=== PATIENT | female | born 1965 | race Caucasian/White ===

== ENCOUNTER 2021-10-25 09:01 | Outpatient (CLI) | payer BC, SELFPAY ==
--- NOTE | 2021-10-25 09:15 | CRLHL7_ITS ---
For Patients: As a result of the Century Cures Act, medical imaging exams and procedure reports are released immediately into your electronic medical record. You may view this report before your referring provider. If you have questions, please contact your health care provider. BILATERAL SCREENING MAMMOGRAM WITH COMPUTER-AIDED DETECTION AND TOMOSYNTHESIS TECHNIQUE: CC and MLO views were obtained. These mammographic images have been obtained using full-field digital technique. These mammographic images were interpreted with the benefit of computer-aided detection. Breast Tomosynthesis was used in this interpretation. COMPARISON FILM: 07/24/20, 06/03/18, 12/26/15. FINDINGS: There are scattered areas of fibroglandular density IMPRESSION: There is no radiographic evidence for malignancy. ASSESSMENT: BI-RADS Category 1: Negative RECOMMENDATION: Routine screening mammogram in 1 year. A lay language report of this examination will be provided to the patient. Steve Hoffman M.D. Diagnostic Radiologist [email or web address] RIMA/Dictated by: Steve Hoffman MD @ 10/25/2021 10:26:00 AM (Electronically Signed)
== END 2021-10-25 09:02 | disposition home or self-care (01) ==
LOC: MAMMO 09:02
PROVIDERS: PCP Physician Assistant Medical; Visit Provider Physician Assistant Medical
DX: Z12.31 Encounter for screening mammogram for malignant neoplasm of breast (principal)
CPT/HCPCS: 77063; 77067

== ENCOUNTER 2021-11-07 14:42 | Outpatient (CLI) | payer BC, SELFPAY ==
[2021-11-07 13:46] LABS: Albumin* 4.4 g/dL (3.3-5.0); Chloride* 103 mmol/L (96-114)
[2021-11-07 13:47] LABS: Potassium* 4.1 mmol/L (3.6-5.1); Sodium* 137 mmol/L (135-149)
[2021-11-07 13:49] LABS: Aspartate Amino Transferase* 30 U/L (12-35); Bilirubin Total* 0.6 mg/dL (0.1-1.5); Blood Urea Nitrogen* 13 mg/dL (7-30); Carbon Dioxide* 29 mmol/L (20-32); Cholesterol* 188 mg/dL (90-199); Creatinine* 0.7 mg/dL (0.5-1.5); Estimated Glomerular Filt Rate 102 ml/min; Glucose* 96 mg/dL (60-115); Total Protein* 6.7 g/dL (6.0-8.3)
[2021-11-07 13:50] LABS: Alanine Aminotransferase* 19 U/L (4-35); Alkaline Phosphatase* 61 U/L (40-150); Calcium* 9.5 mg/dL (8.4-10.6); HDL Cholesterol* 64 mg/dL (>=50); LDL Cholesterol Calculated 112 mg/dL (<100); Triglycerides* 58 mg/dL (40-149)
== END 2021-11-07 14:43 | disposition home or self-care (01) ==
PROVIDERS: PCP Physician Assistant Medical; Visit Provider Physician Assistant Medical
DX: Z00.00 Encounter for general adult medical examination without abnormal findings (principal); E78.5 Hyperlipidemia, unspecified; H40.039 Anatomical narrow angle, unspecified eye; J30.2 Other seasonal allergic rhinitis
CPT/HCPCS: 80053; 80061

== ENCOUNTER 2021-12-09 10:04 | Outpatient (CLI) | payer BC, SELFPAY ==
--- NOTE | 2021-12-09 11:43 | W.ANESCHARGE ---
Anesthesia Charges Start Date/Time Anesthesia Start Date: 12/09/21 Anesthesia Start Time: 11:10 Stop Date/Time Anesthesia Stop Date: 12/09/21 Anesthesia Stop Time: 11:40 Summary Emergency: No
--- NOTE | 2021-12-09 12:02 | W.ANESCHARGE ---
Anesthesia Charges Start Date/Time Anesthesia Start Date: 12/09/21 Anesthesia Start Time: 11:10 Stop Date/Time Anesthesia Stop Date: 12/09/21 Anesthesia Stop Time: 11:40 Summary Emergency: No
== END 2021-12-09 10:05 | disposition home or self-care (01) ==
LOC: OP CLINIC 10:04
PROVIDERS: PCP Physician Assistant Medical; Visit Provider Surgery
DX: Z12.11 Encounter for screening for malignant neoplasm of colon (principal); K63.5 Polyp of colon; Z80.0 Family history of malignant neoplasm of digestive organs
CPT/HCPCS: 00811; 45385; 88305

== ENCOUNTER 2022-05-07 14:00 | Outpatient (RCR) | payer BC, SELFPAY ==
--- NOTE | 2021-12-16 18:09 | OT.OPOE ---
OT Outpatient Ortho Eval OT Outpatient Ortho Eval Start: 12/16/21 15:14 Freq: Status: Active Protocol: Document 12/16/21 15:15 LCN (Rec: 12/16/21 15:34 LCN Desktop) E-signed By Samreen Hurley, OTR/L, CLT OT OP Ortho Eval Details Type Type Eval Complexity Low Insurance Information Insurance Information Blue Cross/Blue Shield Outpatient History/Precautions Current Condition/Medical Diagnosis Referring Provider Jacklyn Beach PA-C Treatment Diagnosis R lateral epicondylitis Date of Onset 12/02/21 Medical Conditions Heart Condition Other Conditions H/O Mitral Valve insufficiency , intraarterial septum aneurysm on ASA 81 mg. Medical/Functional History Medical History Reviewed Yes Prior Level of Function/Mobility High lvel of independence Oriented Mental Status No Concerns Ortho Subjective Subjective Subjective Samreen Dueñas is an active 56 y/o female who has been having R lateral epicondylitis sx for the past 4 months. Tried getting back to working out after her 's spinal cancer, but not tolerating dumb belkl weights at all. Pt's goal for OT is to get back there again soon building uppe rbody strength and endurance without pain. Currently having pain with lifting gallon of milk, laundry detergent, opening big items with a twist. Can use rowing machine x 10 minutes. Also having B cervical pain, has orders from PT to address. 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 Pain Assessment Pain Present Pain Present Pain Reported Location R lateral elbow. Description Pressure,Sharp,Dull, Achy,With Movement,Heaviness Intensity 4 Goniometric Comments Goniometric Comments Goniometric Comments MMT of shoulders revela overfiring of upper traps during SH FL, SH ABD and protraction, all 4+/5 B. R EL pn with resisted biceps and triceps at full BARTOLO. Balanced MMT of WR EX/FL, RD/UD, supination and pronation, all non tender. Gripping pos 1 is 58# R, no pain. L 62. Pos 2 is 48# with 2/10 ECRL pain R and 55# L. Canseco pinch is 17.5 R and 14# L (2/10 L TH MP pain ) 3 pt pinch is 17.5 # R and L, no pain. Thickness, gritty texture and banding at lateral margin of triceps insert, ECU, ECRL msucle bellies. Point tender deep in elbow jint and over the lateral epicondyle. OT Objective Data Observations/Posture Objective Observations Pt is aware she was spending more time on her iPad and watching shows on her larger phone, typing more, now that she is taking an online christianity course. OT Problems Problems Problems Decreased Strength,Lifting, Gripping,Pinching Other Problems Writing,Opening Containers, Computer Patient Potential Excellent Assessment Assessment Assessment Given Samreen's diagnosis of R lateral epicondylitis and ? difficulty with edema, pain and strength loss of R hand/ wrist/elbow she would benefit from skilled OT to address these areas. Occupational Therapy Treatment Plan - OP Potential Rehabilitation Potential Excellent Set Goals Goals Set with Patient Yes Goals Goals In 8 weeks, Samreen will demonstrate:? 1) Decreased pn to <2/10 80% of the time with sustained gripping, carrying groceries, typing and reading books. 2) I HEP for stretching, gradual strengthening and self mgmt strategies. 3) improved R waste removalist strength to 50# in pos 2 with R elbow pain < 1/10. 4)??Pt to be fit with functional bracing (for R elbow counter pressure cuff) and use adaptive strategies to protect joint integrity to support less pain with ADL. Target Date 01/14/23 Progress set Treatment Plan Treatment Plan Evaluation,Edema Control, Iontophoresis,Joint Mobilization,Manual Therapy, Splinting,Ultrasound, Therapeutic Exercise,Self-Care /Home Management,Education Expected Frequency 1-2x Week Expected Duration 6-8 Weeks Certification Certification I Certify That: Therapy Services Provided, Therapy Plan Established, Therapy Plan Reviewed
--- NOTE | 2022-05-07 15:01 | OT.OPODN ---
OT Outpatient Ortho Daily Note OT Outpatient Ortho Daily Note Start: 12/16/21 15:14 Freq: Status: Active Protocol: Document 05/07/22 14:50 LCN (Rec: 05/07/22 15:01 LCN Desktop) E-signed By Samreen Hurley, OTR/L, CLT Type of Note Type of Note Type of Note Daily Note,Discharge Note,Note To MD Visit Number [id number] Comments 02/04/22-- cx with flu Insurance Information Insurance Information Blue Cross/Blue Shield Outpatient History/Precautions Current Condition/Medical Diagnosis Referring Provider Jacklyn Beach PA-C Treatment Diagnosis R lateral epicondylitis Date of Onset 12/02/21 Medical Conditions Heart Condition Other Conditions H/O Mitral Valve insufficiency , intraarterial septum aneurysm on ASA 81 mg. 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 These symptoms are not elicited by other lifting, carrying, unmanned equipment operator/ twist motions. Feeling much better about getting back to the gym. Samreen Dueñas is an active 56 y/o female who has been having R lateral epicondylitis sx for the past 4 months. Tried getting back to working out after her 's spinal cancer, but not tolerating dumb belkl weights at all. Pt 's goal for OT is to get back there again soon building uppe rbody strength and endurance without pain. Currently having pain with lifting gallon of milk, laundry detergent, opening big items with a twist. Can use rowing machine x 10 minutes. Also having B cervical pain, has orders from PT to address. 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 Pain Assessment Pain Present Pain Present Pain Reported Location R lateral elbow. Description Pressure,With Movement Intensity 1 OT OP Daily Ortho Note/Assessment Therapeutic Exercise Therapeutic Exercise Minutes (minutes) 10 Therapeutic Exercise Comments Progressed to dynamic knee based push ups, with pt able to return safe set up of rib to scupla , navel to spine connections ; cues needed only to prevent hyper extend EL at top of ROM. Applied this same prinicple to biceps, chest press, triceps and lat pull down, in anticipation of return to gym with trainers this month. Ultrasound Ultrasound Comments as needed to support reduction of edema for tissue healing and improved tissue mobility. Iontophoresis Iontophoresis Comments as needed for antinflammatory properties, pain reduction. Manual Therapy Manual Therapy Minutes (minutes) 18 Manual Therapy Comments OTR continues IASTM with Graston #6 to mobilize soft tissue surrounding joint capsule,?ligament structures and muscle groups to support freedom of movement and healing of structures of R PT, ECRL R CET, med/lateral triceps insert, ECU, EDC muscle bulk of WR EX group. STM of triceps long head. Goniometric Comments Goniometric Comments Goniometric Comments 05/06/22--Ground Hand Pos 1 is 65# R no pain and 68# L. Pos 2 is 58# R ( 1-2 twinge at deep olec). Canseco pinch is 18# B and 3 pt pinch is 18#B. 04/16/22-- Ground Hand improved pos 2 to 60# with 2-3/10 pressure at deep oelc area, resolves quickly. 40# No pain. MMT of shoulders revela overfiring of upper traps during SH FL, SH ABD and protraction, all 4+/5 B. R EL pn with resisted biceps and triceps at full BARTOLO. Balanced MMT of WR EX/FL, RD/UD, supination and pronation, all non tender. Gripping pos 1 is 58# R, no pain. L 62. Pos 2 is 48# with 2/10 ECRL pain R and 55# L. Canseco pinch is 17.5 R and 14# L (2/10 L TH MP pain ) 3 pt pinch is 17.5 # R and L, no pain. Thickness, gritty texture and banding at lateral margin of triceps insert, ECU, ECRL msucle bellies. Point tender deep in elbow jint and over the lateral epicondyle. OT Objective Data Observations/Posture Objective Observations Pt is aware she was spending more time on her iPad and watching shows on her larger phone, typing more, now that she is taking an online Down course. Additional Information Objective Additional Information 1 Upper Extremity Special Tests Elbow Cozens Test Positive Right OT Problems Problems Problems Decreased Strength,Lifting, Gripping,Pinching Other Problems Writing,Opening Containers, Computer Patient Potential Excellent Assessment Assessment Assessment Pt feeling ready for return to gym setting, getting applications trainer sessions set up. Feeling no more pain with daily ADL,IADL/ house chores. Given Samreen's diagnosis of R lateral epicondylitis and ? difficulty with edema, pain and strength loss of R hand/ wrist/elbow she would benefit from skilled OT to address these areas. Occupational Therapy Treatment Plan - OP Potential Rehabilitation Potential Excellent Set Goals Goals Set with Patient Yes Goals Target Date 01/14/23 Progress set Treatment Plan Treatment Plan Evaluation,Edema Control, Iontophoresis,Joint Mobilization,Manual Therapy, Splinting,Ultrasound, Therapeutic Exercise,Self-Care /Home Management,Education Expected Frequency 1-2x Week Expected Duration 6-8 Weeks Comment Summary Address periscapular to triceps/lat epic tension line w MFR/STM. Review self kinesiotaping if desired. OT Treatment Minutes Treatment Minutes Untimed Treatment Minutes 0 Timed Treatment Minutes 28 Total Treatment Minutes 28 Occupational Therapy Billing Units Billing Units Iontophoresis 0 Manual Therapy 1 Self Care/Home Management 0 Therapeutic Exercise 1 Ultrasound 0 Certification Certification I Certify That: Therapy Services Provided, Therapy Plan Established, Therapy Plan Reviewed Discharge Note Discharge Note Discharge Summary Pt has mild 1-2/10 twinge during unmanned equipment operator pos 2. These symptoms are not elicited by other lifting, carrying, unmanned equipment operator/ twist motions. Feeling much better about getting back to the gym. In 8 weeks, Samreen will demonstrate:? 1) Decreased pn to <2/10 80% of the time with sustained gripping, carrying groceries, typing and reading books. GOAL MET 05/06/22 2) I HEP for stretching, gradual strengthening and self mgmt strategies. GOAL MET 04/11 3) improved R unmanned equipment operator strength to 50# in pos 2 with R elbow pain < 1/10. GOAL MET-- Ground Hand Pos 1 is 65# R no pain and 68# L. Pos 2 is 58# R ( 1-2 twinge at deep olec). Canseco pinch is 18# B and 3 pt pinch is 18#B. 4)??Pt to be fit with functional bracing (for R elbow counter pressure cuff) and use adaptive strategies to protect joint integrity to support less pain with ADL. GOAL MET and D/C, no longer needs bracing. Initial Primary Functional Limitations/ Samreen Dueñas is an active Concerns 56 y/o female who has been having R lateral epicondylitis sx for the past 4 months. Tried getting back to working out after her 's spinal cancer, but not tolerating dumb belkl weights at all. Pt 's goal for OT is to get back there again soon building uppe rbody strength and endurance without pain. Currently having pain with lifting gallon of milk, laundry detergent, opening big items with a twist. Can use rowing machine x 10 minutes. Also having B cervical pain, has orders from PT to address. 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 Initial Pain Level 6 Pain Level at Discharge 1 Interventions Provided During Treatment Heat,Ice/Cold/Vasopneumatic, Iontophoresis,Joint Mobilization,Manual Therapy, Orthotics/Braces,Therapeutic Exercise,Ultrasound,Self Care/ Home Management Recommendations/Reason for Discharge Met All Therapy Goals Discharge Instructions Cont 05/06/22-- knee based push ups 04/16/22-- knee planks, circuit at gym ( lat pull down, TRX row , bicep, tricep, careful with OH Press), interval based group exercise and cardio programs HIIT. 04/07/22-- self k tape 02/14/22-- SH XTR, chest press and biceps. 01/27/22--self K tape 01/22/22-- [place] band concentric 01/15/22-- [place] band isomtric laoding WR EX, FL, RD, UD and hammer turns. Cerv retraction glides.
== END 2022-08-28 23:59 | disposition home or self-care (01) ==
PROVIDERS: PCP Physician Assistant Medical; Visit Provider Physician Assistant Medical
DX: S29.012A Strain of muscle and tendon of back wall of thorax, initial encounter (principal); Z51.89 Encounter for other specified aftercare
CPT/HCPCS: 97033; 97035; 97110; 97140; 97161; 97165; 97535; X5282

== ENCOUNTER 2022-10-27 13:56 | Outpatient (CLI) | payer BC, SELFPAY ==
--- NOTE | 2022-10-27 14:00 | CRLHL7_ITS ---
For Patients: As a result of the Century Cures Act, medical imaging exams and procedure reports are released immediately into your electronic medical record. You may view this report before your referring provider. If you have questions, please contact your health care provider. BILATERAL SCREENING MAMMOGRAM WITH COMPUTER-AIDED DETECTION AND TOMOSYNTHESIS TECHNIQUE: CC and MLO views were obtained. These mammographic images have been obtained using full-field digital technique. These mammographic images were interpreted with the benefit of computer-aided detection. Breast Tomosynthesis was used in this interpretation. COMPARISON FILM: 10/25/21, 07/24/20, 06/03/18. FINDINGS: There are scattered areas of fibroglandular density IMPRESSION: There is no radiographic evidence for malignancy. ASSESSMENT: BI-RADS Category 1: Negative RECOMMENDATION: Routine screening mammogram in 1 year. A lay language report of this examination will be provided to the patient. Steve Hoffman M.D. Diagnostic Radiologist [email or web address] RIMA/Dictated by: Steve Hoffman MD @ 10/28/2022 8:16:00 AM (Electronically Signed)
== END 2022-10-27 13:57 | disposition home or self-care (01) ==
LOC: MAMMO 13:57
PROVIDERS: PCP Physician Assistant Medical; Visit Provider Physician Assistant Medical
DX: Z12.31 Encounter for screening mammogram for malignant neoplasm of breast (principal)
CPT/HCPCS: 77063; 77067

== ENCOUNTER 2022-11-17 11:31 | Outpatient (CLI) | payer BC, SELFPAY | END 2022-11-17 11:32 | disposition home or self-care (01) | PROVIDERS: PCP Physician Assistant Medical; Visit Provider Physician Assistant Medical | DX: M54.9 Dorsalgia, unspecified (principal); R07.89 Other chest pain; R10.13 Epigastric pain | CPT/HCPCS: 80053; 83690 ==

== ENCOUNTER 2022-11-19 12:16 | Outpatient (CLI) | payer BC, SELFPAY ==
--- NOTE | 2022-11-19 14:00 | CRLHL7_ITS ---
For Patients: As a result of the Century Cures Act, medical imaging exams and procedure reports are released immediately into your electronic medical record. You may view this report before your referring provider. If you have questions, please contact your health care provider. INDICATION: Epigastric pain COMPARISON: none TECHNIQUE: Real time brooke scale imaging and color Doppler analysis was performed of the right upper quadrant. FINDINGS: The patient`s liver is of normal size and has uniform echogenicity. There is a normal appearance of the hepatic IVC and proximal abdominal aorta. There is no evidence of ascites. The gallbladder is of normal size and there is no evidence of intraluminal stones or sludge. Incidental small gallbladder fold noted. The gallbladder wall measures 1 mm in thickness. The common bile duct is of normal size and measures 6 mm in diameter at the level of the salvador hepatis. The pancreas appears normal. There is no evidence of a stone or hydronephrosis within the right kidney. The right kidney measures 11.5 cm in length. IMPRESSION: Normal right upper quadrant ultrasound. Dictated by Steve Hoffman MD @ 11/19/2022 1:26:58 PM (Electronically Signed)
== END 2022-11-19 12:17 | disposition home or self-care (01) ==
LOC: US 12:17
PROVIDERS: PCP Physician Assistant Medical; Visit Provider Physician Assistant Medical
DX: R10.13 Epigastric pain (principal)
CPT/HCPCS: 76705

== ENCOUNTER 2022-12-17 12:52 | Outpatient (CLI) | payer BC, SELFPAY | END 2022-12-17 12:53 | disposition home or self-care (01) | LOC: NFLDREF 12-26 11:53 | PROVIDERS: PCP Physician Assistant Medical; Referring Provider Physician Assistant Medical; Visit Provider Physician Assistant Medical | DX: R10.13 Epigastric pain (principal); R63.4 Abnormal weight loss | CPT/HCPCS: 83516 ==

== ENCOUNTER 2022-12-25 11:30 | Outpatient (CLI) | payer BC, SELFPAY ==
--- NOTE | 2022-12-25 12:00 | CRLHL7_ITS ---
For Patients: As a result of the Century Cures Act, medical imaging exams and procedure reports are released immediately into your electronic medical record. You may view this report before your referring provider. If you have questions, please contact your health care provider. INDICATION: Epigastric abdominal pain. Negative gallbladder ultrasound November 19, 2022. TECHNIQUE: 5.24 mCi Tc-99m labeled Mebrofenin. 1.15 mcg Kinevac IV. FINDINGS: Normal uptake and excretion of tracer by the liver. Activity is identified promptly within the extrahepatic biliary tree and the gallbladder between 5 and 10 minutes after injection. The gallbladder continues to fill up to 1 hour. After the administration of Kinevac, the gallbladder ejection fraction is calculated at 5 percent which is below the lower limit of normal of 35 percent. IMPRESSION: 1. No evidence for cystic duct or common duct obstruction. No biliary leak. 2. Abnormally low gallbladder ejection fraction. This can be seen with chronic acalculous cholecystitis or biliary dyskinesia. Please correlate clinically. Dictated by Abhishek Arellano MD @ 12/25/2022 3:10:16 PM (Electronically Signed)
== END 2022-12-25 11:31 | disposition home or self-care (01) ==
LOC: NM 11:31
PROVIDERS: PCP Physician Assistant Medical; Visit Provider Physician Assistant Medical
DX: R10.13 Epigastric pain (principal); K81.9 Cholecystitis, unspecified
CPT/HCPCS: 78227; A9537; J2805

== ENCOUNTER 2023-01-15 17:56 | Emergency (ER) | payer BC, SELFPAY ==
[2023-01-15 18:03] VITALS: BP 159/89; PULSE 73; RESP 18; TEMP 36.9; O2SAT 98; BMI 20.8
--- NOTE | 2023-01-15 19:12 | ED.GENADULT ---
HPI - General Adult General Date Seen: 01/15/23 Chief complaint: Back Injury/Pain Stated complaint: gallbladder pain Time Seen by Provider: 01/15/23 18:46 History of Present Illness HPI narrative: This is a very pleasant 57-year-old female accompanied to the ER today by her . She has a past medical history including biliary dyskinesia with plans for laparoscopic cholecystectomy scheduled next week, recent abnormal HIDA scan. She also has a history of mitral insufficiency, hyperlipidemia, borderline glaucoma. She does not have any history of chronic low back pain or previous lumbar spine surgeries. No history of kidney problems. She is referred to the ER today by the nurse triage line for evaluation of low back pain. Today she began having pain affecting both sides of her lumbar spine, more so on the right than on the left. She does not recall any trigger for this pain. She notes that with her recent gallbladder problems she had been overall less active than normal so she did some elliptical training to exercise a couple of days ago for the 1st time recently. No other recent new activities, bending, twisting, lifting. No recent falls or injuries. The pain is affecting both sides of her lumbar paraspinous muscles and goes a little bit into her right buttock. It does not radiate down her leg. No associated numbness or weakness or tingling or pain in her leg. No bowel or bladder disturbance. No fever or chills. Although she has been having flares of gallbladder pain for the past couple of months, today's pain is not similar or in the same location as her gallbladder attacks. No dietary indiscretions. She has been eating rice cakes and [place] muffins. She indicates that her back pain is considerably better now than it was at home. It got better while she was waiting in the lobby. She has been icing her back. Related Data Home Medications Medication Instructions Recorded Confirmed omeprazole 20 mg capsule,delayed 20 mg PO QDAY 12/18/22 01/08/23 release Allergies Allergy/AdvReac Type Severity Reaction Status Date / Time No Known Drug Allergies Allergy Verified 01/08/23 11:22 [facility] Medical History (Updated 01/15/23 @ 21:24 by Justin Lang MD) Tendinitis of right forearm ?M77.8 - Other enthesopathies, not elsewhere classified (ICD-10) History of miscarriage ?Z87.59 - Personal history of other complications of , childbirth and the puerperium (ICD-10) Onychomycosis ?B35.1 - Tinea unguium (ICD-10) Migraine headache ?G43.909 - Migraine, unspecified, not intractable, without status migrainosus (ICD-10) Fibroadenoma of right breast ?D24.1 - Benign neoplasm of right breast (ICD-10) Cyst of ovary ?N83.209 - Unspecified ovarian cyst, unspecified side (ICD-10) Chalazion of left lower eyelid ?H00.15 - Chalazion left lower eyelid (ICD-10) Surgical History (Updated 01/08/23 @ 11:48 by Jacklyn Beach PA-C) History of dilatation and curettage ?Z98.890 - Other specified postprocedural states (ICD-10) Hx of section ?Z98.891 - History of uterine scar from previous surgery (ICD-10) Hx of varicose vein ligation and stripping (~07/2021) ?Z98.890 - Other specified postprocedural states (ICD-10) Family History (Updated 01/06/23 @ 10:05 by Zulma Garza MD) Father Colon cancer Alcohol dependence Paternal Grandfather Diabetes Heart disease Maternal Grandfather Lung cancer Sister Cancer of appendix Mother High blood pressure Osteoporosis Social History Narrative: . Spouse has dealt with spine cancer; in remission. She has 2 biological children and 1 stepson. She is a [id number] mom. Has completed college. Nonsmoker. Rare to no alcohol use. Denies recreational drug use. Exercise routinely Smoking Status: Never smoker How often do you have a drink containing alcohol: never How often do you have six or more drinks on one occasion: Never AUDIT-C Alcohol total score: 0 Non-prescribed substance use: denies use Exam Narrative: Exam Narrative: Constitutional: Appears well-developed and well-nourished. Alert. Conversant. Non toxic. HENT: Head: Atraumatic. Nose: Nose normal. Mouth/Throat: Oral mucosa is clear and moist. no trismus. Pharynx normal. Tonsils symmetric. No tonsillar enlargement, erythema, or exudate. Eyes: Conjunctivae normal. EOM normal. Pupils equal, round, and reactive to light. No scleral icterus. Neck: Normal range of motion. Neck supple. No tracheal deviation present. Cardiovascular: Normal rate, regular rhythm. No gallop. No friction rub. No murmur heard. Symmetric radial artery pulses Pulmonary/Chest: Effort normal. No stridor. No respiratory distress. No wheezes. No rales. No rhonchi . No tenderness. Abdominal: Soft. Bowel sounds normal. No distension. No mass. No tenderness. No rebound. No guarding. Musculoskeletal: Normal inspection of her low back. She has a Band-Aid on her right mid back where she had a recent biopsy last week. Skin around the biopsy site looks good. This is not over the midline or over the vertebrae. There is no rash. No ecchymosis. No abrasion. No shingles. No midline step-off of the thoracic or lumbar spines. No point tenderness. RUE: Normal range of motion. No tenderness. No deformity LUE: Normal range of motion. No tenderness. No deformity RLE: Normal range of motion. No edema. No tenderness. No deformity LLE: Normal range of motion. No edema. No tenderness. No deformity Lymph: No cervical adenopathy. Neurological: Alert and oriented to person, place, and time. Normal strength. CN II-VII intact. No sensory deficit. GCS eye subscore is 4. GCS verbal subscore is 5. GCS motor subscore is 6. Normal coordination Skin: Skin is warm and dry. No rash noted. No pallor. Normal capillary refill. Psychiatric: Normal mood. Normal affect. Const: Vital Signs, click to edit/add: Vital Signs - 24 hr 01/15/23 18:03 Temperature 98.4 F Pulse Rate [Right Pulse Oximeter] 73 Respiratory Rate 18 Blood Pressure [Ri ght Upper Arm] 159/89 H Pulse Oximetry 98 Oxygen Delivery Me thod Room Air Course Course ED Course: Recheck-pain already improved significantly from at home but still having some discomfort. Recheck-after Tylenol pain improved but still some discomfort. She feels much better when sitting up straight but still has some pain that bothers her when she tries to lie down. She does not think she would be able to sleep at home in her bed tonight. Will add Flexeril. Urinalysis shows scant hematuria which could suggest possible kidney stone. Although at this point the patient is experiencing more bilateral lumbar paraspinous pain than true classic ?flank pain?. Discussed options including supportive management and pain control with watchful waiting for 24 hours versus going ahead with CT imaging tonight. Since the patient has surgery coming up in 5 days, she really prefers more aggressive expeditious workup. Therefore we will obtain stool to per protocol CT imaging. At the time of this dictation the results of the stone protocol CT are still pending. Discussed with my partner, Dr. Cerda who will follow-up on the CT results. I suspect the patient's pain may be musculoskeletal in nature. I have written presumptive prescriptions for Flexeril and [place] that she can use in addition to [id number] Tylenol at home. Vital Signs Vital signs: Initial Vital Signs Temperature 98.4 F 01/15/23 18:03 Temperature Source Temporal Artery Scan 01/15/23 18:03 Pulse Rate 73 01/15/23 18:03 Respiratory Rate 18 01/15/23 18:03 Blood Pressure 159/89 H 01/15/23 18:03 Blood Pressure Mean 112 H 01/15/23 18:03 Blood Pressure Position Sitting 01/15/23 18:03 Pulse Oximetry 98 01/15/23 18:03 Oxygen Delivery Method Room Air 01/15/23 18:03 Vital Signs Temperature 98.4 F 01/15/23 18:03 Pulse Rate 73 01/15/23 18:03 Respiratory Rate 18 01/15/23 18:03 Blood Pressure 159/89 H 01/15/23 18:03 Pulse Oximetry 98 01/15/23 18:03 Oxygen Delivery Method Room Air 01/15/23 18:03 Temperature 98.4 F 01/15/23 18:03 Pulse Rate 73 01/15/23 18:03 Respiratory Rate 18 01/15/23 18:03 Blood Pressure 159/89 H 01/15/23 18:03 Pulse Oximetry 98 01/15/23 18:03 Oxygen Delivery Method Room Air 01/15/23 18:03 Medications Administered Medications: Discontinued Medications Generic Name Dose Route Start Last Admin Trade Name Freq PRN Reason Stop Dose Admin Acetaminophen 1,000 mg 01/15/23 19:11 01/15/23 19:18 Acetaminophen 500 Mg Tablet PO 01/15/23 19:12 1,000 mg ONCE ONE Administration Cyclobenzaprine HCl 10 mg 01/15/23 20:18 01/15/23 20:25 Cyclobenzaprine Hcl 10 Mg Tablet PO 01/15/23 20:19 10 mg ONCE ONE Administration Medical Decision Making MDM Narrative Medical decision making narrative: This patient presented with back pain. Broad differential considered. The patient did not sustain any trauma, therefore x-rays are not necessary due to the low likelihood of fracture or subluxation. No red flag symptoms to suggest CT and/or MRI is indicated at this point. The patient has not had a fever, saddle/perineal anesthesia, bilateral foot numbness, or bowel or bladder dysfunction. There is no clinical evidence of cauda equina syndrome, discitis, spinal/epidural space hematoma or epidural abscess. The neurological exam is normal and the patient's symptoms seem consistent with a musculoskeletal issues and significant muscle spasm. Pain has improved with interventions in the emergency department. The patient will be discharged with pain medications to use as directed. Ice or heat to the back and stretching exercises. No heavy lifting, bending or twisting. Return if increasing pain, numbness, weakness, or bowel or bladder dysfunction. Differential for her back pain would also include kidney pathology although she is not having ?classic? flank pain at this time. Urinalysis obtained and is negative for any signs for infection but it does show scant amount of microscopic hematuria which could indicate the presence of a stone. I have ordered a stone protocol CT. Results pending at the time of this dictation. Discussed with my partner, Dr. Cerda will follow-up on the results. He will determine ultimate disposition. I have written presumptive discharge instructions for musculoskeletal low back pain and instead med prescriptions for Flexeril 10 mg-15 tablets and [place] 5/325 mg-10 tablets. Lab Data Labs: Lab Results 01/15/23 Range/Units 19:12 Urine Color Yellow (Yellow) Urine Appearance Clear (Clear) Urine pH 6.5 (5.0-8.5) Ur Specific [place] 1.010 (1.000-1.030) Urine Protein Negative (Negative) Urine Glucose (UA) Negative (Negative) Urine Ketones Negative (Negative) Urine Blood Negative (Negative) Urine Nitrite Negative (Negative) Urine Bilirubin Negative (Negative) Urine Urobilinogen 0.2 (0.2-1.0) Ur Leukocyte Esterase Negative (Negative) Urine RBC 2-5 A (0-2) Urine WBC 2-5 (0-5) Ur Squamous Epith Cells None (None-Few) Urine Bacteria None (None) Discharge Plan Discharge Clinical Impression: Low back pain, Hematuria, microscopic Patient Disposition: Home, Self-Care Condition: Stable Instructions: Acute Low Back Pain (ED) Additional Instructions: As we discussed, please use Tylenol or both flu reduction disease needed for back pain and spasm. The be careful with muscle relaxers because they can cause drowsiness, dizziness, and can be addictive. If your pain is not improving within the next 2-3 days, please recheck with your regular doctor. Prescriptions: No Action omeprazole 20 mg capsule,delayed release(DR/EC) 20 mg PO QDAY Follow Up/Referrals: Jacklyn Beach PA-C [Primary Care Provider] - Stand Alone Forms: [employer] Info Instructions
[2023-01-15] MEDS: ACETAMINOPHEN 500 MG TABLET 1000 MG PO (19:18)
[2023-01-15 19:46] LABS: Appearance Urine Clear (Clear); Bilirubin Urine Negative (Negative); Blood Urine Negative (Negative); Color Urine Yellow (Yellow); Glucose Urine Negative (Negative); Ketones Urine Negative (Negative); Leukocyte Esterase Urine Negative (Negative); Nitrite Urine Negative (Negative); Protein Urine Negative (Negative); Urobilinogen Urine 0.2 (0.2-1.0); pH Urine 6.5 (5.0-8.5)
--- NOTE | 2023-01-15 20:18 | CRLHL7_ITS ---
For Patients: As a result of the Century Cures Act, medical imaging exams and procedure reports are released immediately into your electronic medical record. You may view this report before your referring provider. If you have questions, please contact your health care provider. INDICATION: Back pain/flank pain, hematuria. TECHNIQUE: CT of the abdomen and pelvis without intravenous contrast. Coronal and sagittal reconstructions. COMPARISON: Abdominal ultrasound 11/19/2022. FINDINGS: The unenhanced liver, gallbladder, spleen, and adrenal glands are normal in appearance. There is a 0.6 cm cystic lesion in the pancreatic body (series 2, image 30). No biliary dilation. No hydronephrosis or ureteral dilation. No intrarenal or ureteral calculi. Multiple pelvic phleboliths. Moderately distended urinary bladder. No bladder wall thickening or perivesical inflammation. Tiny calcification in the uterine fundus. No obvious adnexal mass. No small bowel dilation. Large amount of stool throughout the colon. The appendix is not definitely identified, however there are no secondary signs of inflammation in the right lower quadrant. No intraperitoneal free air or fluid. No lymphadenopathy. The bones are unremarkable. The lung bases are clear. IMPRESSION: 1. No hydronephrosis or obstructing urinary calculi. The bladder is moderately distended but otherwise unremarkable. 2. Subcentimeter cystic lesion in the pancreatic body may represent a side branch IPMN. This could be further evaluated with nonemergent contrast-enhanced MRI/MRCP. 3. Large amount of stool. 4. No other acute findings in the abdomen or pelvis on this noncontrast exam. Please note that all CT scans at this facility use dose modulation, iterative reconstruction, and/or weight-based dosing when appropriate to reduce radiation dose to as low as reasonably achievable. Dictated by Millicent Bloom MD @ 01/15/2023 10:05:51 PM (Electronically Signed)
[2023-01-15] MEDS: CYCLOBENZAPRINE HCL 10 MG TABLET PO (20:25)
[2023-01-15 22:10] VITALS: BP 128/67; PULSE 62; O2SAT 96
== END 2023-01-15 22:21 | disposition home or self-care (01) ==
PROVIDERS: Emergency Provider Emergency Medicine; PCP Physician Assistant Medical
DX: M54.50 Low back pain, unspecified (principal); R31.9 Hematuria, unspecified
CPT/HCPCS: 74176; 81001; 99284; A9270

== ENCOUNTER 2023-01-19 09:27 | Day surgery (SDC) | payer BC, SELFPAY ==
[2023-01-19] VITALS (16 sets, daily range): BP systolic 103–122; BP diastolic 60–80; PULSE 50–73; RESP 12–16; TEMP 36.3–36.7; O2SAT 96–100; BMI 47.5
[2023-01-19] MEDS: LACTATED RINGERS 1000 ML 1,000 ML 100 ML IV ×2 (09:45→11:20)
--- NOTE | 2023-01-19 10:41 | P.GSOP_ITS ---
Operative Note Pre-op diagnosis: Biliary dyskinesia Post-op diagnosis: Same Type of Procedure: The patient is a 57-year-old female who Indications: The patient is a 57-year-old female who presented to clinic with right flank chest and abdominal wall pain. It was difficult for her to determine exactly the timing though it seems as though it was worse at the end of the day, or would keep her up at night. Workup revealed a normal gallbladder ultrasound, however on HIDA scan, she had a gallbladder ejection fraction of 5%. We discussed cholecystectomy as an option for treatment, understanding that if her symptoms persisted after surgery given the atypical timing, further workup would be necessary. Of note she did in the meantime have a CT scan of her abdomen which was then for hematuria which showed a small cyst likely in her pancreas, however no findings to explain her discomfort. Procedure Description: After discussing the risks and benefits of the procedure, the patient signed informed consent.? The operative site was marked and the patient was brought to the operating room and placed on the operating table in supine position.? Care was taken to pad the patient's pressure points.?? The patient was then intubated by anesthesia.?? The operative site was then prepped and draped in the usual sterile fashion.? A time-out was then performed. Entrance to the abdomen was gained via a 5 mm Visiport in the left upper quadrant. The abdomen was insufflated and briefly surveyed for signs of injury. There was none. A 10 mm umbilical port was placed as well as 2 working ports along the right costal margin, all under direct vision. The patient was then placed in reverse Trendelenburg position with the right side up. The gallbladder fundus was grasped and retracted cephalad. A small amount of dissection was needed to free omental adhesions from the gallbladder. The infundibulum was grasped. A combination of hook cautery and blunt dissection was used to carefully dissect out the cystic duct and artery until they could clearly be seen entering the gallbladder without any intervening structures. The gallbladder was dissected off the cystic plate to achieve the critical view. Once this was achieved the cystic duct and artery were each clipped with 2 clips proximally and 1 clip distally and transected with the scissors. The gallbladder was then taken off of the liver bed and removed from the abdomen using an Endo- Catch bag. The gallbladder bed was surveyed for hemostasis which appeared adequate. The ports were then removed and the abdomen desufflated. The umbilical port fascia was closed with 0 Vicryl. The skin was closed with absorbable subcuticular suture. Sterile dressings were then applied. Instrument sponge and needle counts were correct at the end of the case. The patient was then woken and transferred to the PACU in stable condition. The patient tolerated the procedure well. Findings: Gallbladder with omental adhesions noted. No obvious stones noted on palpation of the specimen. Anesthesia: GETA Surgeon: Zulma Garza MD Estimated blood loss (mL): 5 Specimen: Gallbladder Condition: stable Disposition: PACU Date of procedure: 01/19/23
--- NOTE | 2023-01-19 10:41 | W.PM.H&PU ---
History & Physical Update History & Physical Update H&P Reviewed and patient assessed: No changes noted
[2023-01-19] MEDS: CEFAZOLIN 1 GM inj IVP (10:53)
[2023-01-19] MEDS: BUPIVACAINE 0.25% 30 ML INJECTION (11:30)
--- NOTE | 2023-01-19 11:43 | W.ANESCHARGE ---
Anesthesia Charges Start Date/Time Anesthesia Start Date: 01/19/23 Anesthesia Start Time: 10:43 Stop Date/Time Anesthesia Stop Date: 01/19/23 Anesthesia Stop Time: 11:53
--- NOTE | 2023-01-19 11:54 | W.ANESCHARGE ---
Anesthesia Charges Start Date/Time Anesthesia Start Date: 01/19/23 Anesthesia Start Time: 10:43 Stop Date/Time Anesthesia Stop Date: 01/19/23 Anesthesia Stop Time: 11:53
[2023-01-19] MEDS: fentaNYL 100 MCG/2 ML inj 50 MCG IVP (12:14)
--- NOTE | 2023-01-19 12:27 | SUR.PHASEI ---
patient met discharge criteria per anesthesia
[2023-01-19] MEDS: HYDROCODONE-ACETAMIN 5-325 MG 1 TAB PO (12:54)
== END 2023-01-19 14:25 | disposition home or self-care (01) ==
PROVIDERS: PCP Physician Assistant Medical; Visit Provider Surgery
PROC: 0FT44ZZ Resection of Gallbladder, Percutaneous Endoscopic Approach (ICD-10-PCS; CPT 47562; principal; 2023-01-19 11:00)
DX: K82.8 Other specified diseases of gallbladder (principal); K81.1 Chronic cholecystitis
CPT/HCPCS: 47562; 790; 88304; A9270; J0330; J0665; J0690; J1100; J1885; J2250; J2405; J2704; J2710; J3010; J7120

== ENCOUNTER 2023-01-19 23:21 | Emergency (ER) | payer BC, SELFPAY ==
[2023-01-19 23:32] VITALS: BP 143/80; PULSE 71; RESP 18; TEMP 37.1; O2SAT 98; BMI 20.2
--- NOTE | 2023-01-20 00:17 | CRLHL7_ITS ---
For Patients: As a result of the Century Cures Act, medical imaging exams and procedure reports are released immediately into your electronic medical record. You may view this report before your referring provider. If you have questions, please contact your health care provider. INDICATION: Status post laparoscopic cholecystectomy today, persistent pain, postoperative abdominal pain TECHNIQUE: Abdomen/Pelvis radiograph 2 views COMPARISON: CT 01/15/2023 FINDINGS: Bowel: Moderate amount of stool is present throughout the colon which may be due to chronic constipation. The bowel gas pattern is normal without evidence of bowel obstruction. Soft tissue: Moderate pneumoperitoneum is present and most likely related to recent surgery. No suspicious calcifications noted. Surgical clips are noted in the right upper quadrant from prior cholecystectomy. Bone: Unremarkable for age. IMPRESSION: 1. Moderate pneumoperitoneum is present and most likely related to recent surgery. Mild perforation is considered unlikely but cannot be completely excluded. Dictated by Jaylan Mcdonald MD @ 01/20/2023 12:58:40 AM Dictated by: Jaylan Mcdonald MD @ 01/20/2023 00:58:46 (Electronically Signed)
--- NOTE | 2023-01-20 00:18 | ED_ITS ---
HPI - General Adult General Chief complaint: Abdominal Pain Stated complaint: Abdominal Pain Time Seen by Provider: 01/19/23 23:59 Source: patient and family Mode of arrival: ambulatory Limitations: no limitations History of Present Illness HPI narrative: Patient presents with lower diffuse abdominal pain, worse with laying flat and with movement. Patient underwent a cholecystectomy this afternoon, per her report and the operative notes which are reviewed this was uncomplicated. Patient states that after going home, she ate chicken soup, bread, Jell-O throughout the night with no nausea, vomiting or signs of complications. Does believe she has passed flatus. No bowel movement since surgery. Worried she could be constipated. Patient states that she got home at about 3:00 p.m., took 1 hydrocodone tablet at around 6:00 p.m.. Went to try to go in to bed at about 9:30 p.m., had a lot of pain trying to get into her bed which is quite high off the ground. She tried taking some ibuprofen, sounds like about 400 mg with no significant improvement in her pain. She then tried taking 1 hydrocodone tablet about an hour prior to coming to the hospital with no significant improvement initially in symptoms. From her description, it sounds as though she is starting to get a little bit more comfortable now. There is no significant redness, bleeding or drainage from the incision sites. She has not had any fever. There is no severe weakness, loss of consciousness, dysuria, signs of bleeding. She is concerned about the amount of pain that she is in. It sounds as though there was some dissection for adhesions performed during the surgery. She reports her past medical history is benign, only home med is omeprazole 20 mg once daily. It looks as though she was given 10 hydrocodone tablets with instructions to take 1 tablet every 6 hours as needed. Nonsmoker. Surgical history notable for prior . ROS notable for the generalized abdominal symptoms as described above, otherwise denies times 12 systems. Related Data Home Medications Medication Instructions Recorded Confirmed omeprazole 20 mg capsule,delayed 20 mg PO QDAY 12/18/22 01/19/23 release acetaminophen 325 mg capsule 325 mg PO Q6H PRN 01/19/23 01/19/23 (Tylenol) Previous Rx's Medication Instructions Recorded hydrocodone 5 mg-acetaminophen 325 1 tab PO Q6H PRN Pain #10 tabs 12/11/23 mg tablet Allergies Allergy/AdvReac Type Severity Reaction Status Date / Time No Known Drug Allergies Allergy Verified 01/19/23 23:33 [facility] Medical History (Updated 01/20/23 @ 01:45 by Char Damon MD) Tendinitis of right forearm ?M77.8 - Other enthesopathies, not elsewhere classified (ICD-10) History of miscarriage ?Z87.59 - Personal history of other complications of , childbirth and the puerperium (ICD-10) Onychomycosis ?B35.1 - Tinea unguium (ICD-10) Migraine headache ?G43.909 - Migraine, unspecified, not intractable, without status migrainosus (ICD-10) Fibroadenoma of right breast ?D24.1 - Benign neoplasm of right breast (ICD-10) Cyst of ovary ?N83.209 - Unspecified ovarian cyst, unspecified side (ICD-10) Chalazion of left lower eyelid ?H00.15 - Chalazion left lower eyelid (ICD-10) Surgical History (Updated 01/20/23 @ 00:27 by Simeon Valentin RN) History of laparoscopic cholecystectomy ?Z90.49 - Acquired absence of other specified parts of digestive tract (ICD- 10) History of dilatation and curettage ?Z98.890 - Other specified postprocedural states (ICD-10) Hx of section ?Z98.891 - History of uterine scar from previous surgery (ICD-10) Hx of varicose vein ligation and stripping (~07/2021) ?Z98.890 - Other specified postprocedural states (ICD-10) Family History Father Colon cancer Alcohol dependence Paternal Grandfather Diabetes Heart disease Maternal Grandfather Lung cancer Sister Cancer of appendix Mother High blood pressure Osteoporosis Social History Narrative: . Spouse has dealt with spine cancer; in remission. She has 2 biological children and 1 stepson. She is a [id number]-[id number]-wjgm mom. Has completed college. Nonsmoker. Rare to no alcohol use. Denies recreational drug use. Exercise routinely Smoking Status: Never smoker How often do you have a drink containing alcohol: never How often do you have six or more drinks on one occasion: Never AUDIT-C Alcohol total score: 0 Non-prescribed substance use: denies use Caffeine: Yes Exam Const: Vital Signs, click to edit/add: Vital Signs - 24 hr 01/19/23 23:32 01/20/23 00:49 01/20/23 01:58 Temperature 98.7 F Pulse Rate [Pulse Oximeter] 71 67 Respiratory Rate 18 16 Blood Pressure [Ri ght Upper Arm] 143/80 H 132/71 Pulse Oximetry 98 97 98 Oxygen Delivery Me thod Room Air Room Air Documenting provider has reviewed patient's vital signs: yes Common normals: no apparent distress General appearance: well kempt Other: Seems only mildly uncomfortable. Good historian. Appears well nourished and well hydrated. HENMT: Common normals: normocephalic Head and scalp: normocephalic Face and sinus: normal facial exam Mouth: oral and palatal mucosa normal Throat: posterior oropharynx normal Eye: Common normals: conjunctivae normal General eye: normal appearance of both eyes Conjunctiva: conjunctiva(e) normal Neck & C-Spine: Common normals: no lymphadenopathy Resp: Common normals: normal respiratory effort and clear to auscultation bilaterally Effort & inspection: able to speak in complete sentences Auscultation: clear to auscultation bilaterally Cardio: Common normals: regular rate, regular rhythm, S1 normal heart sound, S2 normal heart sound and no murmurs Rate: regular rate Rhythm: regular rhythm Heart sounds: S1 normal and S2 normal GI: Other: Surgical incisions look great. Appropriate surgeon strips in place with only a little bit of dried blood. No significant surrounding swelling or bruising. Bowel sounds are normoactive throughout. Abdomen appears nondistended. She is mildly diffusely tender to palpation but certainly no rebound tenderness or guarding. No mass. Extremity: Common normals: normal to inspection and normal capillary refill Psych: Appearance: well kempt Attitude: engaged Insight: insight good Judgement: judgment good Skin: Narrative: Other than the surgical surgeons which look good, no other abnormal appearing findings. Course Course ED Course: Exam is overall quite reassuring. I suspect that she is having typical postoperative pain. I would have like for her to have been a bit more aggressive with home pain management. Will give 10 mg of p.o. oxycodone x1, Toradol 10 mg p.o. x1, 25 mg of Vistaril. I do not think there are any complications here but to be sure, I am going to double check some labs and get a flat and upright abdominal film to look for any signs of perforation. If her pain gets under good control with the oral pain medicines, we can probably avoid CT as long as the labs are reassuring. Consider surgical consult for advice if needed. Reevaluation(s) Reevaluation #1: Patient re-evaluated 1 hour after pain medications with marked improvement in symptoms. Reviewed all normal lab findings with patient. X-ray is overall reassuring. She is less than 12 hours postop, I certainly do expect to still have some air. But I do not see any severe constipation, excessive amounts of air, obstruction or other worrisome findings. Since she is doing so much better, I do not recommend proceeding with CT scan. Vitals have remained stable as well. I do not think she is having any severe complications other than inadequate pain control. Counseled patient on stepwise pain management plan with Tylenol, increasing to ibuprofen and have given her a limited supply of oxycodone as well. Discussed use of sleep aids like melatonin and or Tylenol p.m. if needed as well. Patient will update her surgeon if her pain has not markedly improved by early afternoon. Once she is out of the oxycodone, it is okay to go back to the hydrocodone, total daily dosing of Tylenol was discussed. Stressed the importance of stool softeners, increasing the MiraLax every 8 hours if needed for constipation. She verbalizes understanding and agreement. Alarm symptoms were reviewed that would warrant ED presentation. Vital Signs Vital signs: Initial Vital Signs Temperature 98.7 F 01/19/23 23:32 Temperature Source Temporal Artery Scan 01/19/23 23:32 Pulse Rate 71 01/19/23 23:32 Respiratory Rate 18 01/19/23 23:32 Blood Pressure 143/80 H 01/19/23 23:32 Blood Pressure Mean 101 01/19/23 23:32 Blood Pressure Position Sitting 01/19/23 23:32 Pulse Oximetry 98 01/19/23 23:32 Oxygen Delivery Method Room Air 01/19/23 23:32 Vital Signs Temperature 98.7 F 01/19/23 23:32 Pulse Rate 71 01/19/23 23:32 Respiratory Rate 18 12/11/23 23:32 Blood Pressure 143/80 H 01/19/23 23:32 Pulse Oximetry 98 01/19/23 23:32 Oxygen Delivery Method Room Air 01/19/23 23:32 Temperature 98.7 F 01/19/23 23:32 Pulse Rate 67 01/20/23 01:58 Respiratory Rate 16 01/20/23 01:58 Blood Pressure 132/71 01/20/23 01:58 Pulse Oximetry 98 01/20/23 01:58 Oxygen Delivery Method Room Air 01/20/23 01:58 Medications Administered Medications: Discontinued Medications Generic Name Dose Route Start Last Admin Trade Name Freq PRN Reason Stop Dose Admin Hydroxyzine Pamoate 25 mg 01/20/23 00:25 01/20/23 00:37 Hydroxyzine Pamoate 25 Mg Capsule PO 01/20/23 00:26 25 mg ONCE ONE Administration Ketorolac Tromethamine 10 mg 01/20/23 00:17 01/20/23 00:23 Ketorolac 10 Mg Tablet PO 01/20/23 00:18 10 mg ONCE ONE Administration Oxycodone HCl 10 mg 01/20/23 00:17 01/20/23 00:23 Oxycodone 5 Mg Tablet PO 01/20/23 00:18 10 mg ONCE ONE Administration Medical Decision Making Lab Data Labs: Lab Results 01/20/23 Range/Units 00:30 WBC 8.40 (4.50-11.00) K/uL RBC 4.48 (4.00-5.20) m/uL Hgb 13.0 (12.0-16.0) gm/dL Hct 38.5 (33.0-51.0) % MCV 86 (80-100) fL MCH 29 (26-34) pg MCHC 34 (32-36) gm/dL RDW Coeff of Lizet 11.8 (11.5-15.5) % Plt Count 194 (140-440) K/uL Neut % (Auto) 79.4 H (42.0-72.0) % Lymph % (Auto) 15.0 L (20-44) % [place] % (Auto) 4.8 (0.0-11.0) % Eos % (Auto) 0.0 (0.0-7.0) % Baso % (Auto) 0.1 (0.0-3.0) % Neut # (Auto) 6.70 (1.7-7.0) K/uL Lymph # (Auto) 1.30 (0.90-2.90) K/uL [place] # (Auto) 0.40 (0.00-0.90) K/UL Eos # (Auto) 0.00 (0.00-0.50) K/uL Baso # (Auto) 0.01 (0.00-0.30) K/uL Abs Immat Gran (auto) 0.06 (0.00-0.30) K/uL Imm/Tot Granulo (auto) 0.7 % Sodium 137 (135-149) mmol/L Potassium 4.0 (3.6-5.1) mmol/L Chloride 102 (96-114) mmol/L Carbon Dioxide 29 (20-32) mmol/L Anion Gap 6 L (7-15) mEq/L BUN 13 (7-30) mg/dL Creatinine 0.6 (0.5-1.5) mg/dL Estimated Creat Clear 93.71 Estimated GFR 105 ml/min Glucose 123 H (60-115) mg/dL Lactate 1.0 (0.5-1.9) mmol/L Calcium 9.1 (8.4-10.6) mg/dL Total Bilirubin 0.3 (0.1-1.5) mg/dL AST 29 (12-35) U/L ALT 21 (4-35) U/L Alkaline Phosphatase 63 (40-150) U/L C-Reactive Protein < 0.5 L (0.5-1.0) mg/dL Total Protein 6.9 (6.0-8.3) g/dL Albumin 4.4 (3.3-5.0) g/dL Lipase 118 (23-300) U/L Discharge Plan Discharge Clinical Impression: Postoperative abdominal pain Patient Disposition: Home w/ Parent or Adult Condition: Improved Instructions: Pain Management After Surgery (DC) Additional Instructions: As we discussed, your lab work is very reassuring. There are no signs of infection or excess inflammation. Your exam was reassuring as well. The x-ray shows a little bit of air which is common after a laparoscopic surgery and some mild retained stool but certainly no severe constipation. I am glad that your pain is doing better with the medications that I gave you. I recommend that we be a bit more aggressive with pain medication, please follow the menu as below: For the next 2 days, use Tylenol 1000 mg every 6 hours, scheduled. This means that you take the medication when you are due for it and not based on how your pain is at that time. After 2 days, you may reduce this to just as needed. For most people, they are taking this for about a week in doses of 8226-1289 mg daily. If the pain is not adequately relieved by the Tylenol, add in ibuprofen 600 mg every 6 hours also. You will probably take this most of the time every 6 hours in the next few days. You may wean off of this once things are doing better in the next few days also. Both the Tylenol and ibuprofen are the safest medications to use, please max out these doses 1st prior to moving on to the next steps as below: I have given you 10 tablets of oxycodone. This is a stronger narcotic pain medication. You may use up to 2 tablets every 4 hours. You will not likely need more than these 10 tablets. Once things are doing better in a day or 2, you may try switching back to the hydrocodone. Remember that the hydrocodone does contain a little bit of Tylenol and you need to keep that in mind when calculating your total daily dosing of Tylenol. Total allowed amount is 4000 mg daily or 12 tablets. One hydrocodone has the same amount of Tylenol as 1 Tylenol tablet, provided your using the regular not the extra-strength. Remember that the oxycodone especially and somewhat the hydrocodone will make you constipated. A good rule of thumb is 1 Colace tablet for every 2 oxycodone tablets. Remember that this is a stool softener and not a laxative. If after a couple of days, you still feel constipated, I would recommend MiraLax 1 dose every 8 hours until your bowels move soft. Update your surgeon if things are not doing markedly better by tomorrow afternoon. If you have high fevers, significant bleeding, severe weakness, you should come back to the emergency department. It is okay to try to wean off of the oxycodone as soon as possible but remember to max out your Tylenol and then your ibuprofen for pain control. Activity Level: Activity as Tolerated Discharge Diet: Regular Prescriptions: No Action omeprazole 20 mg capsule,delayed release(/EC) 20 mg PO QDAY acetaminophen [Tylenol] 325 mg capsule 325 mg PO Q6H PRN hydrocodone-acetaminophen 5-325 mg Tablet 1 tab PO Q6H PRN (Reason: Pain) Qty: 10 0RF Follow Up/Referrals: Jacklyn Beach PA-C [Primary Care Provider] - Stand Alone Forms: [employer] Info Instructions
[2023-01-20] MEDS: OXYCODONE 5 MG TABLET 10 MG PO (00:23)
[2023-01-20] MEDS: KETOROLAC 10 MG TABLET PO (00:23)
[2023-01-20] MEDS: hydrOXYzine pamoate 25 MG CAPSULE PO (00:37)
[2023-01-20 00:39] LABS: Basophils Absolute Auto 0.01 K/uL (0.00-0.30); Basophils Percent Auto 0.1 % (0.0-3.0); Hematocrit 38.5 % (33.0-51.0); Immature Granulocytes Abs Auto 0.06 K/uL (0.00-0.30); Immature Granulocytes Pct Auto 0.7 %; Mean Corpuscular HGB Conc 34 gm/dL (32-36); Mean Corpuscular Hemoglobin 29 pg (26-34); Mean Corpuscular Volume 86 fL (80-100); Monocytes Percent Auto 4.8 % (0.0-11.0); Neutrophils Percent Auto 79.4 % (42.0-72.0); Platelet Count* 194 K/uL (140-440); RDW Coefficient of Variation % 11.8 % (11.5-15.5); Red Blood Count 4.48 m/uL (4.00-5.20)
[2023-01-20 00:49] VITALS: O2SAT 97
[2023-01-20 00:51] LABS: Slide Review Reflex No
[2023-01-20 00:52] LABS: Albumin* 4.4 g/dL (3.3-5.0); Chloride* 102 mmol/L (96-114); Sodium* 137 mmol/L (135-149)
[2023-01-20 00:55] LABS: Creatinine* 0.6 mg/dL (0.5-1.5); Est. Creatinine Clearance* 93.71; Estimated Glomerular Filt Rate 105 ml/min
[2023-01-20 00:56] LABS: Alanine Aminotransferase* 21 U/L (4-35); Alkaline Phosphatase* 63 U/L (40-150); Anion Gap 6 mEq/L (7-15); Aspartate Amino Transferase* 29 U/L (12-35); Bilirubin Total* 0.3 mg/dL (0.1-1.5); Blood Urea Nitrogen* 13 mg/dL (7-30); Carbon Dioxide* 29 mmol/L (20-32); Glucose* 123 mg/dL (60-115); Lipase* 118 U/L (23-300); Total Protein* 6.9 g/dL (6.0-8.3)
[2023-01-20 00:57] LABS: Calcium* 9.1 mg/dL (8.4-10.6)
[2023-01-20 01:01] LABS: C Reactive Protein* < 0.5 mg/dL (0.5-1.0)
[2023-01-20 01:58] VITALS: BP 132/71; PULSE 67; RESP 16; O2SAT 98
== END 2023-01-20 02:02 | disposition home or self-care (01) ==
PROVIDERS: Emergency Provider Family Medicine; PCP Physician Assistant Medical
DX: G89.18 Other acute postprocedural pain (principal); R10.9 Unspecified abdominal pain
CPT/HCPCS: 36415; 74019; 80053; 83605; 83690; 85025; 86140; 94761; 99284; A9270

== ENCOUNTER 2023-02-06 12:57 | Outpatient (CLI) | payer BC, SELFPAY | END 2023-02-06 12:58 | disposition home or self-care (01) | LOC: RAD 12:58 | PROVIDERS: PCP Physician Assistant Medical; Visit Provider Physician Assistant Medical | DX: I34.0 Nonrheumatic mitral (valve) insufficiency (principal) | CPT/HCPCS: 93306 ==

== ENCOUNTER 2024-08-01 08:33 | Outpatient (CLI) | payer OTHER, SELFPAY | END 2024-08-01 08:34 | disposition home or self-care (01) | PROVIDERS: PCP Physician Assistant Medical; Visit Provider Physician Assistant Medical | DX: Z00.00 Encounter for general adult medical examination without abnormal findings (principal); H91.92 Unspecified hearing loss, left ear; I34.0 Nonrheumatic mitral (valve) insufficiency; E78.5 Hyperlipidemia, unspecified; Z11.4 Encounter for screening for human immunodeficiency virus [HIV]; Z11.59 Encounter for screening for other viral diseases | CPT/HCPCS: 80053; 80061; 84443; 86703; 86803 ==

== ENCOUNTER 2024-08-03 10:48 | Outpatient (CLI) | payer OTHER, SELFPAY | END 2024-08-03 10:49 | disposition home or self-care (01) | LOC: LKVREF 10:48 | PROVIDERS: PCP Physician Assistant Medical; Visit Provider Otolaryngology | DX: H91.22 Sudden idiopathic hearing loss, left ear (principal); Z13.0 Encounter for screening for diseases of the blood and blood-forming organs and certain disorders involving the immune mechanism | CPT/HCPCS: 82728 ==

== ENCOUNTER 2024-08-19 13:16 | Outpatient (CLI) | payer OTHER, SELFPAY ==
--- NOTE | 2024-08-19 13:20 | CRLHL7_ITS ---
For Patients: As a result of the Century Cures Act, medical imaging exams and procedure reports are released immediately into your electronic medical record. You may view this report before your referring provider. If you have questions, please contact your health care provider. INDICATION: BILATERAL SCREENING MAMMOGRAM, ASYMPTOMATIC 59 Y/O FEMALE COMPARISON: 10/27/2022, 10/25/2021, 07/24/2020 TECHNIQUE: Digital mammogram in CC and MLO projections including computer-aided detection (CAD) and tomosynthesis. BREAST COMPOSITION: There are scattered areas of fibroglandular density. FINDINGS: No suspicious findings. ASSESSMENT: BI-RADS 1 Negative RECOMMENDATION: Annual screening mammogram. A lay language report of this examination will be provided to the patient. Dictated by: Steve Hoffman MD @ 08/22/2024 12:33:51 (Electronically Signed)
== END 2024-08-19 13:17 | disposition home or self-care (01) ==
LOC: MAMMO 13:16
PROVIDERS: PCP Physician Assistant Medical; Visit Provider Physician Assistant Medical
DX: Z12.31 Encounter for screening mammogram for malignant neoplasm of breast (principal)
CPT/HCPCS: 77063; 77067

== ENCOUNTER 2024-08-31 08:03 | Outpatient (CLI) | payer OTHER, SELFPAY | END 2024-08-31 08:04 | disposition home or self-care (01) | LOC: NFLDREF 09-01 02:49 | PROVIDERS: PCP Physician Assistant Medical; Referring Provider Physician Assistant Medical; Visit Provider Physician Assistant Medical | DX: Z13.21 Encounter for screening for nutritional disorder (principal); H91.22 Sudden idiopathic hearing loss, left ear | CPT/HCPCS: 82306; 82607; 83735 ==

== ENCOUNTER 2024-09-01 01:09 | Emergency (ER) | payer OTHER, SELFPAY ==
--- OUTSIDE RECORDS SUMMARY | 2024-07-30 20:59 | XMS_ITS | Encounter Summary ---
Author Organization [facility] Address [facility] [place] [address] Care Team Providers Care Ship Carpenter Name Role Phone Jacklyn Beach PA-C Primary Care Provider Reason for Referral * Consultation (Emergency: 1-2 Days) - Pending Review Specialty Diagnoses / Procedures Referred By Marti santos Referred To Contact Otolaryngology Diagnoses Hearing loss of left ear, unspecified hearing loss type Fransisco Castillo PA-C [facility] [address] [place] [address] Phone: tel: fax: Referral ID Status Reason Start Date Expiration Date V isits Requested Visits Authorized [id number] Pending Review 07/30/2024 07/30/2025 1 1 Question Answer Reason for Referral: Ear Symptoms Scheduling Instructions: [facility] will call you to coordinate your care as prescribed by the provider. If you don t hear from a credit and collections representative within 2 business days, please call [phone]. Comments Please be aware that coverage of these services is subject to the terms and limitations of your health insurance plan. Call member services at your health plan with any benefit or coverage questions. [facility] will call you to coordinate your care as prescribed by the provider. If you don t hear from a credit and collections representative within 2 business days, please call [phone]. Reason for Visit * Reason Comments Ear Fullness Hearing Problem Encounter Details Date Type Department Care Team (Late st Contact Info) Description 07/30/2024 8:59 PM CDT - 07/30/2024 10:27 PM CDT Emergency [facility] Emergency Dept [address] [place] [address] Fransisco Castillo PA-C [facility] [address] [place] [address] Hearing loss of left ear, unspecified hearing loss type Discharge Disposition: Home or Self Care Social History Tobacco Use Types Packs/Day Years Used Date Smoking Tobacco: Never Smokeless Tobacco: Never Alcohol Use Standard Drinks/Week Comments No 0 (1 standard drink = 0.6 oz pur e alcohol) Adolescent Education Answer Date Record ed Getting School Help Needed Not on file 10/31 Comments No Sex and Gender Information Value Date Recorded Sex Assigned at Not on file Legal Sex Female 12:15 PM [employer] Gender Identity Not on file Sexual Orientation Not on file documented as of this encounter Last Filed Vital Signs Vital Sign Reading Time Taken Comments Blood Pressure 125/73 07/30/2024 10:26 PM CDT Pulse 67 07/30/2024 10:26 PM CDT Temperature 37 C (98.6 F) 07/30/2024 8:08 PM CDT Respiratory Rate 16 07/30/2024 10:26 PM CDT Oxygen Saturation 100% 07/30/2024 10:26 PM CDT Inhaled Oxygen Concentration - - Weight 59.9 kg (132 lb) 07/30/2024 8:08 PM CDT Height 165.1 cm (5' 5) 07/30/2024 8:08 PM CDT Body Mass Index 21.97 07/30/2024 8:08 PM CDT documented in this encounter Discharge Instructions * Discharge Instructions* Fransisco Castillo PA-C - 07/30/2024 10:13 PM CDT The exact cause of your symptoms is unclear at this time. There is no suggestion for emergent causeat this time as the remainder of your exam is reassuring. * Attachments The following attachments cannot be sent through Care Everywhere. * Hearing Loss ([place]) documented in this encounter Medications at Time of Discharge ASPIRIN ADULT LOW STRENGTH PO Take 81 mg by mouth daily documented as of this encounter ED Notes * Fransisco Castillo PA-C - 07/30/2024 9:07 PM CDT Emergency Department Note History of Present Illness Chief Complaint Ear Fullness and Hearing Problem HPI Samreen Dueñas is a 58 year old female who presents to the ED for ear fullness and a hearing problem. The patient reports while away on a silent retreat, her left ear began to feel sensations of pressure which upon waking up this morning she details she hasn't been able to hear anything out of the ear. She also notes no pain even when she was taking a flight from [place] this evening. She also states almost as if something is stuck or going on inside her ear. She endorses slight rhinorrhea. She denies any sore throat, discharge from the ear or vision changes. She also denies any history of hearing related issues. 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 Appearance: Normal appearance. She is not diaphoretic. HENT: Head: Atraumatic. Right Ear: Hearing, tympanic membrane, ear canal and external ear normal. Left Ear: Tympanic membrane, ear canal and external ear normal. Decreased hearing noted. No middle ear effusion. There is no impacted cerumen. Ears: Mota exam findings: Lateralizes right. Right Rinne: AC > BC. Nose: Nose normal. Mouth/Throat: Mouth: Mucous membranes are moist. Pharynx: Oropharynx is clear. Eyes: General: No scleral icterus. Conjunctiva/sclera: Conjunctivae normal. Pulmonary: Effort: Pulmonary effort is normal. Skin: General: Skin is warm. Findings: No rash. Neurological: Mental Status: She is alert and oriented to person, place, and time. Cranial Nerves: Cranial nerve deficit (unable to hear out of left ear, otherwise CN normal) present. Sensory: Sensation is intact. Motor: Motor function is intact. Coordination: Coordination is intact. Gait: Gait is intact. Psychiatric: Mood and Affect: Mood normal. Speech: Speech normal. Diagnostics Lab Results Labs Ordered and Resulted from Time of ED Arrival to Time of ED Departure - No data to display Imaging No orders to display Independent Interpretation None ED Course Medications Administered Medications - No data to display Procedures Procedures Discussion of Management None ED Course ED Course as of 07/30/242222 Sat Jul 30, 20242024 I obtained history and examined the patient as noted above Additional Documentation None Medical Decision Making / Diagnosis [facility] Diagnoses: None MIPS None MDM Samreen Dueñas is a 58 year old female who is otherwise healthy who presents to the ED for evaluation of unilateral hearing loss. Patient notes sensation of pressure to left ear for the past few days followed by hearing loss of left ear. Patient has had some congestion/rhinorrhea. No vertigo. DDx was broad and included OM, OE, eustachian tube dysfunction, trauma, CVA, mass, medication reaction, amongst others. No evidence for OM, OE. No clear fluid behind TM noted. Discussed with patient possibility for ETD given recent congestion/rhinorrhea. No suggestion for perforated TM. With exceptionof hearing loss to left side, remainder of patient's full neurologic exam was unremarkable. Patientis not taking any medications. Mota and Rinne tests performed. With Mota, sound did localized to patient's right ear. Patient had normal Rinne on right side. Patient unable to perceive placement oftuning fork to left side to mastoid process, unable to hear tuning fork in the air on the left sideeither. Discussed with patient the unclear etiology of her symptoms at this time. Discussed with patient that further evaluation by ENT was warranted, however do feel that this can take place as an outpatient, and MRI could be ordered as an outpatient if indicated. Certainly possible that this is sensorineural hearing loss of undetermined etiology. Emergent referral provided to ENT. All questions answered. Patient discharged to home in stable condition. Disposition The patient was discharged. Diagnosis ICD-10-CM 1. Hearing loss of left ear, unspecified hearing loss type H91.92 Adult ENT Manager Heavy Equipment Referral Discharge Medications New Prescriptions No medications on file Scribe Disclosure: I, Bronson Mcdonald, am serving as a scribe at 9:09 PM on 07/30/2024 to document services personally performed by Fransisco Castillo PA-C based on my observations and the provider's statements to me. This record was created at least in part using electronic voice recognition software, so please excuse any typographical errors. Fransisco Castillo PA-C 07/31/24 0051 * Matilda Joe RN - 07/30/2024 8:07 PM CDT Pt reports left ear fullness a few days ago a lot of fluid pt reports hearing loss today. Pt had a recent flight documented in this encounter Plan of Treatment Scheduled Referrals Name Type Priority Associated Diagnoses Orde r Schedule Adult ENT Manager Heavy Equipment Referral Referral Emergency: 1-2 Days Hearing loss of left ear, unspecified hearing loss type Expected: 07/30/2024 (Approximate), Expires: 07/30/2025 documented as of this encounter Visit Diagnoses Diagnosis Hearing loss of left ear, unspecified hearing loss type documented in this encounter Care Teams Ship Carpenter Relationship Specialty Start Date End Date Jacklyn Beach PA-C [facility] [address] [place] [address] PCP - General Physician Art Installer 07/30/24 documented as of this encounter
[2024-09-01] VITALS (13 sets, daily range): BP systolic 135–154; BP diastolic 74–88; PULSE 60–66; RESP 6–19; TEMP 36.6; O2SAT 100; BMI 21.0
--- OUTSIDE RECORDS SUMMARY | 2024-09-01 01:12 | XMS_ITS | Encounter Summary ---
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
--- OUTSIDE RECORDS SUMMARY | 2024-09-01 01:12 | XMS_ITS | Clinical Summary ---
Author Organization [facility] Address [address] [place] [address] Care Team Providers Care Director Of Engineering Name Role Phone Bia Jarrett MD Primary Care Provider [phone] Source Comments You are receiving this document as you are listed as the primary care provider,follow-up provider, or the patient has been referred to you for consultation.This is in compliance with the Medicare and[employer]ma Healthcaid EHR Incentive Program,which states Providers who transition their patient to another setting of careor provider of care or refers their patient to another provider of care shouldprovide summary care record for each transition of care or referral. [facility] Allergies No known active allergies Medications aspirin 81 MG tablet Take 1 Tablet (81 mg) by mouth daily. Active Active Problems No known active problems Immunizations Immunization Administration Dates Next Due Influenza IIV4 (Quadrivalent) 0.5mL (38006) 11/10 Social History Tobacco Use Types Packs/Day Years Used Date Smoking Tobacco: Never Alcohol Use Standard Drinks/Week Comments Yes 0 (1 standard drink = 0.6 oz pur e alcohol) Comments No Sex and Gender Information Value Date Recorded Sex Assigned at Not on file Legal Sex Female 2:41 PM CDT Gender Identity Not on file Sexual Orientation Not on file Last Filed Vital Signs Vital Sign Reading Time Taken Comments Blood Pressure 110/64 11/04/2022 11:37 AM CDT Pulse 59 11/04/2022 11:37 AM CDT Temperature 36.8 C (98.2 F) 11/04/2022 11:37 AM CDT Respiratory Rate 18 11/04/2022 11:37 AM CDT Oxygen Saturation 98% 11/04/2022 11:37 AM CDT Inhaled Oxygen Concentration - - Weight 59.9 kg (132 lb) 03/04/2018 11:04 AM DISTRIBUTION DISTRICT SUPERVISOR Height 167.6 cm (5' 6) 03/04/2018 11:04 AM DISTRIBUTION DISTRICT SUPERVISOR Body Mass Index 21.31 03/04/2018 11:04 AM DISTRIBUTION DISTRICT SUPERVISOR Plan of Treatment Health Maintenance Due Date Last Done Comments Cervical Cancer Screening Due 1966 Colon Cancer Screening Plan Due 1966 Hep C Screening (Preventive Services) 1966 Mammogram 1966 HIV Screening (Preventive Services) 1982 Adult Preventive Visit 1984 HepB Vaccine (1) 1985 Cholesterol 08/07/2011 Pneumococcal Vaccine 50+ Yrs (1 of 1 - PCV) 2016 Zoster/Shingles Vaccine (1 of 2) 2016 COVID-19 Vaccine (4 - season) 2023 02/05/2021, 05/22/2020, 05/01/2020 Influenza Vaccine (#1) 2024 , 12/26/2020, 12/26/2020, Additional history exists DTaP/Tdap/Td Vaccine (4 - Tdap) 07/03/2032 07/03/2022, 07/03/2022, 07/27/2017 HepA Vaccine Aged Out No longer eligi ble based on patient's age to complete this topic Hib Vaccine Aged Out No longer eligi ble based on patient's age to complete this topic IPV (Polio) Vaccine Aged Out No longe r eligible based on patient's age to complete this topic MCV4 Vaccine Aged Out No longer eligi ble based on patient's age to complete this topic Meningococcal B Vaccine Aged Out No l onger eligible based on patient's age to complete this topic Insurance [employer] Care Teams Director Of Engineering Relationship Specialty Start Date End Date Bia Jarrett MD [address] [place] [address] PCP - General Family Practice 07/04/16
--- OUTSIDE RECORDS SUMMARY | 2024-09-01 01:12 | XMS_ITS | Encounter Summary ---
Author Organization [place] Address [facility] 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 Gender Identity Not on file Sexual Orientation Not on file documented as of this encounter Miscellaneous Notes * Telephone Encounter - Johanne Corley - 08/02/2024 11:46 AM CDT Left Voicemail (1st Attempt) for the patient to call back and schedule the following: Appointment type: ent audio (can use nurse only slot as this is for sudden hearing loss) Provider: any [facility] branch account manager Return date: next available (ideally terri) Specialty phone number: group underwriter's direct and call center number Additional appointment(s) needed: n/a Additional Notes: sudden hearing loss, see nurse triage encounter. Johanne Corley on 08/02/2024 at 11:46 AM documented in this encounter Plan of Treatment Not on file documented as of this encounter Visit Diagnoses Not on filedocumented in this encounter Care Teams Service Control Operator Relationship Specialty Start Date End Date Jacklyn Beach PA-C [facility] [address] [place] [address] PCP - General Physician Youth Pastor 07/30/24 Olya Klein AuD [address] [place] [address] Director Of Manufacturing Audiology 08/02/24 documented as of this encounter
--- OUTSIDE RECORDS SUMMARY | 2024-09-01 01:12 | XMS_ITS | Clinical Summary ---
Author Organization [employer] [facility] Address [address] [place] [address] Care Team Providers Care Bleacher [employer] Name Role Phone Jacklyn Beach PA-C Primary Care Provider [phone] Allergies No known active allergies Medications aspirin chewable 81 mg chewable tablet Take 1 tablet by mouth once daily with a meal. 0 09/16/2014 Active Active Problems Problem Noted Date Diagnosed Date Mitral valve prolapse 08/10/2020 History of narrow angle glaucoma 06/22/2013 Social History Tobacco Use Types Packs/Day Years Used Date Smoking Tobacco: Never Smokeless Tobacco: Never Alcohol Use Standard Drinks/Week Comments Not Asked 0 (1 standard drink = 0.6 oz pur e alcohol) Social Connections Answer Date Recorded Frequency of Communication with Friends and Fami ly Not on file 02/09/2021 Financial Resource Strain Answer Date R ecorded Difficulty of Paying Living Expenses Not on file 02/09/2021 Difficulty of Paying Living Expenses Not on file 02/09/2021 Comments No Sex and Gender Information Value Date Recorded Sex Assigned at Not on file Legal Sex Female 6:46 PM CDT Gender Identity Not on file Sexual Orientation Not on file Obstetrics History Last Filed Vital Signs Vital Sign Reading Time Taken Comments Blood Pressure 120/78 09/16/2014 1:59 PM CDT Pulse 67 09/16/2014 1:59 PM CDT Temperature 36.5 C (97.7 F) 09/16/2014 1:59 PM CDT Respiratory Rate 14 09/16/2014 1:59 PM CDT Oxygen Saturation 100% 09/16/2014 1:59 PM CDT RA Inhaled Oxygen Concentration - - Weight 60.3 kg (133 lb) 09/16/2014 1:59 PM CDT Height 166.4 cm (5' 5.5) 09/16/2014 1:59 PM CDT Body Mass Index 21.8 09/16/2014 1:59 PM CDT Plan of Treatment Health Maintenance Due Date Last Done Comments Tetanus booster 1977 Depression screening for age 12+ 1978 HIV for age 15-65 1981 BMI (ht and wt on same day) for age 18+ 1984 Hepatitis C screening for ag e 18-79 1984 Hepatitis B series for 19+ ( 1 of 3 - 19+ 3-dose series) 1985 Colonoscopy through age 75 08/07/2011 Lipids for age 45-75 08/07/2011 Mammogram for age 45-75 08/07/2011 Pneumococcal series for age 50+ (1 of 1 - PCV) 2016 Zoster (shingles) series for age 50+ (1 of 2) 2016 Pap test for age 21-65 05/10/2021 9, 05/10/2018, 11/01/2013, Additional history exists COVID-19 vaccine series (2023- season) 2023 05/22/2020, 05/01/2020 Influenza Vaccine (#1) 2024 Procedures Procedure Name Priority Date/Time Associated Diagnosis Comments HOSPITAL ADMISSIONS OFFICER THIN PREP PAP SCREEN IMAGED Routine 05/10/2018 12:00 PM CDT from Last 3 Months or Most Recently Relevant to Health Maintenance Results * HOSPITAL ADMISSIONS OFFICER THIN PREP PAP SCREEN IMAGED (05/10/2018 12:00 PM CDT) Case Report Gynecologic Cytology Report Case: [id number] Authorizing Provider: Lissette England MD Collected: 05/10/2018 1200 Ordering Location: [facility] Received: 05/11/2018 0750 First Screen: Mare Sethi Specimen: HOSPITAL ADMISSIONS OFFICER ThinPrep Vial Screening, Cervical/Vaginal 05/18/2018 1:47 PM CDT [facility] INTERPRETATION/ RESULT NEGATIVE FOR INTRAEPITHELIAL LESION OR MALIGNANCY (NIL) (none) 05/18/2018 1:47 PM CDT [facility] at 1347 CDT SPECIMEN ADEQUACY Satisfactory for evaluation No endocervical component seen 05/18/2018 1:47 PM CDT [facility] HPV REQUEST HPV and PAP 05/18/2018 1:47 PM CDT [facility] Last Pap Date 11/01/2013 05/18/2018 1:47 PM CDT [facility] Last Pap Result NIL 9 1:47 PM CDT [facility] Menstrual Status 05/18/2018 1:47 PM CDT [facility] Comment:menopause Automated Review Successful 05/18/2018 1:47 PM CDT [facility] Comment:Specimen processed s uccessfully by automated director of premium seat sales device, [employer] System, [employer] ANCILLARY TESTING HOSPITAL ADMISSIONS OFFICER HPV Ordered, Please see separate report 05/18/2018 1:47 PM CDT [facility] Note The pap test is a screening technique, not a diagnostic procedure. It is used primarily to screen for squamous cancers and precursor lesions. Published studies have shown that it is subject to both false negative and false positive results. The pap test should not be used as the sole means to diagnose or exclude pre-malignant and malignant lesions. Cytology is screened and interpreted at [facility] - [address], [place] [address] and [facility] - [address]; [place] [address] and [facility] - [address]; [place] [address] and [facility] [address]; [place] [address] 05/18/2018 1:47 PM CDT [facility] Other (Cervical/Vagina l) 05/10/2018 12:00 PM CDT 05/11/2018 7:50 AM CDT us Lissette England MD PATHOLOGY/CYTOLOGY Final Res ult [facility] [address] [place] [address], from Last 3 Months or Most Recently Relevant to Health Maintenance Insurance [facility] Care Teams Bleacher [employer] Relationship Specialty Start Date End Date Jacklyn Beach PA-C [address] [place], [place] [id number] PCP - General Emergency Medicine 08/03/20
--- OUTSIDE RECORDS SUMMARY | 2024-09-01 01:12 | XMS_ITS | Clinical Summary ---
Author Organization [place] Address [facility] [place] [address] Care Team Providers Care Molder Automobile Carpets Name Role Phone Jacklyn Beach PA-C Primary Care Provider Olya Klein AuD Unavailable [phone] Allergies No known active allergies Medications ASPIRIN ADULT LOW STRENGTH PO Take 81 mg by mouth daily Active Active Problems No known active problems Encounters Date Type Department Care Team Description 08/02/2024 Telephone [facility] Audiology [address] [place] [address] Unknown 07/30/2024 8:59 PM CDT - 07/30/2024 10:[address] 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 Gender Identity Not on file Sexual Orientation [...] Mass Index 21.97 07/30/2024 8:08 PM CDT Plan of Treatment Health Maintenance Due Date Last Done Comments ADVANCE CARE PLANNING 1966 ANNUAL REVIEW OF HM ORDERS 1966 CT COLONOGRAPHY 1966 FIT 1966 FLEX SIG 1966 MAMMO SCREENING 1966 sDNA (Cologuard) 1966 YEARLY PREVENTIVE VISIT 1969 COLONOSCOPY 1976 COLORECTAL CANCER SCREENING 1976 HIV SCREENING 1981 HEPATITIS C SCREENING 1984 HEPATITIS B VACCINE (1 of 3 - 19+ 3-dose series) 1985 LIPID 2006 PNEUMOCOCCAL VACCINE 50+ YEARS (1 of 1 - PCV) 2016 ZOSTER VACCINE (1 of 2) 2016 DIABETES SCREENING 05/04/2021 05/04/2018, 12/22/2013 PAP 05/10/2021 05/10/2018 COVID-19 VACCINE ( season) 2023 02/05/2021, 05/22/2020, 05/01/2020 PHQ-2 (once per calendar year) 2024 INFLUENZA VACCINE (#1) 2024 , 12/26/2020, 12/02/2019, Additional history exists DTAP/TDAP/TD VACCINE (3 - Td or Tdap) 07/03/2032 07/03/2022, 07/27/2017 HPV VACCINE Aged Out No longer eligi ble based on patient's age to complete this topic MENINGITIS VACCINE Aged Out No longer eligible based on patient's age to complete this topic Medical Devices Explanted Type Area Oil Burner Installer Device Identifier Shelf Expiration Date Model / Serial / Lot Catheter-07/12/19 Implanted:07/11 by Trace Meek MD (Quantity not on file) Explanted:07/11 by Trace Meek MD (Quantity not on file) Catheter [employer] [id number] 02/08/2023 / / [id number] Procedures Procedure Name Priority Date/Time Associated Diagnosis Comments BASIC METABOLIC PANEL STAT 05/04/2018 3:27 AM CDT from Last 3 Months or Most Recently Relevant to Health Maintenance Results * Basic metabolic panel (05/04/2018 3:27 AM CDT) Sodium 142 133 - 144 mmol/L 05/04/2018 4:[address] [facility] Potassium 3.7 3.4 - 5.3 mmol/L 05/04/2018 4:[address] [facility] Chloride 108 94 - 109 mmol/L 05/04/2018 4:[address] [facility] Carbon Dioxide 29 20 - 32 mmol/L 05/04/2018 4:[address] [facility] Anion Gap 5 3 - 14 mmol/L 05/04/2018 4:[address] [facility] Glucose 94 70 - 99 mg/dL 05/04/2018 4:[address] [facility] Urea Nitrogen 17 7 - 30 mg/dL 05/04/2018 4:[address] [facility] Creatinine 0.77 0.52 - 1.04 mg/dL 05/04/2018 4:[address] [facility] GFR Estimate 89 >60 mL/min/{1. 73_m2} 05/04/2018 4:[address] [facility] Comment: Non GFR Calc Starting 01/26/2018, serum creatinine based estimated GFR (eGFR) will be calculated using the Chronic Kidney Disease Epidemiology Collaboration (CKD-EPI) equation. GFR Estimate If Black >90 >60 mL/min/{1. 73_m2} 05/04/2018 4:30 AM CDT [facility] Comment: GFR Calc Starting 01/26/2018, serum creatinine based estimated GFR (eGFR) will be calculated using the Chronic Kidney Disease Epidemiology Collaboration (CKD-EPI) equation. Calcium 8.9 8.5 - 10.1 mg/dL 05/04/2018 4:30 AM CDT [facility] Blood specimen (specimen) 05/04/2018 3:27 AM CDT 05/04/2018 4:10 AM CDT us Annabella Perry MD LAB - BLOOD ORDERABLES Final R esult [facility] [address] [place] [address], [facility] [phone] from Last 3 Months or Most Recently Relevant to Health Maintenance Insurance [employer] Care Teams Molder Automobile Carpets Relationship Specialty Start Date End Date Jacklyn Beach PA-C [facility] [address] [place] [address] PCP - General Physician Subassembly Supervisor 07/30/24 Olya Klein AuD [address] [place] [address] Licensing Services Clerk Audiology 08/02/24
--- NOTE | 2024-09-01 01:41 | CRLHL7_ITS ---
For Patients: As a result of the Century Cures Act, medical imaging exams and procedure reports are released immediately into your electronic medical record. You may view this report before your referring provider. If you have questions, please contact your health care provider. Indication: Chest pain. Technique: Two views of the chest. Comparison: Chest x-ray 11/17/2022. Findings/Impression: The heart is not abnormally enlarged. There is mild pulmonary vascular congestion. No confluent airspace opacity appreciated. No pleural effusion or pneumothorax. No acute osseous abnormality. Dictated by Bronson Martinez MD @ 09/01/2024 2:09:33 AM (Electronically Signed)
--- NOTE | 2024-09-01 01:49 | ED_ITS ---
HPI - General Adult General Chief complaint: Chest Pain Stated complaint: chest pains Time Seen by Provider: 09/01/24 01:12 Source: patient Mode of arrival: ambulatory Limitations: no limitations History of Present Illness HPI narrative: 51-year-old female presents the emergency department for evaluation of chest pain that started at 11:30 p.m., 90 minutes prior to arrival. No trauma or injury. Took an iron supplement and went to bed around 10 later with a burning- type chest pain across the entire front chest. No shortness of breath. No nausea or vomiting. No trauma or injury. No prior history of similar symptoms. Reports that she has had an echo, actually gets them about every 3 years. This is been ongoing for 10 years for what sounds like mitral valve prolapse. She reports that she was noted to have a wall motion abnormality that that has been stable. She also mentions an aneurysm but it sounds like that was of the septum or ventricular wall, not the aorta. The imaging was ordered based off of findings on her exam, did not have any syncopal symptoms, arrhythmias or history of PE. Does not take anticoagulants. Has been feeling well with no recent fevers. Normal appetite and intake. Symptoms improved markedly during the ride over to the ED and she contemplated not coming in for evaluation, urged her to. She has had a stress test but it has been about 15 years, sounds like it was part of the original workup for her heart. Did not try any interventions prior to coming to the ED. pain has improved markedly, now just a mild ache in the central chest. Past medical history is fairly benign per her report. She recently had an episode of sudden hearing loss which improved with the use of a steroid burst. She does have hyperlipidemia. Reports no long-term prescription medications. No known drug allergies. No history of DVT or PE. ROS is notable for the chest symptoms only, otherwise denies times 12 systems. Related Data Home Medications ?Medication ?Instructions ?Recorded ?Confirmed acetaminophen 325 mg capsule 325 mg PO Q6H PRN 3 08/16/24 (Tylenol) omeprazole 20 mg capsule,delayed 20 mg PO QDAY 5 08/16/24 release Previous Rx's ?Medication ?Instructions ?Recorded estradiol 0.01% (0.1 mg/gram) 1 appful vaginal 2XW #42 .5 grams 08/01/24 vaginal cream (Estrace) Allergies Allergy/AdvReac Type Severity Reaction Status Date / Time No Known Drug Allergies Allergy Verified 09/01/24 01:17 [facility] Medical History Sudden-onset sensorineural hearing loss ?H91.20 - Sudden idiopathic hearing loss, unspecified ear (ICD-10) Abnormal biliary HIDA scan (~12/2022) ?R94.8 - Abnormal results of function studies of other organs and systems (ICD-10) Tendinitis of right forearm ?M77.8 - Other enthesopathies, not elsewhere classified (ICD-10) History of miscarriage ?Z87.59 - Personal history of other complications of , childbirth and the puerperium (ICD-10) Onychomycosis ?B35.1 - Tinea unguium (ICD-10) Migraine headache ?G43.909 - Migraine, unspecified, not intractable, without status migrainosus (ICD-10) Fibroadenoma of right breast ?D24.1 - Benign neoplasm of right breast (ICD-10) Cyst of ovary ?N83.209 - Unspecified ovarian cyst, unspecified side (ICD-10) Chalazion of left lower eyelid ?H00.15 - Chalazion left lower eyelid (ICD-10) Surgical History History of laparoscopic cholecystectomy ?Z90.49 - Acquired absence of other specified parts of digestive tract (ICD- 10) History of dilatation and curettage ?Z98.890 - Other specified postprocedural states (ICD-10) Hx of section ?Z98.891 - History of uterine scar from previous surgery (ICD-10) Hx of varicose vein ligation and stripping (~07/2021) ?Z98.890 - Other specified postprocedural states (ICD-10) Family History Father Colon cancer Alcohol dependence Paternal Grandfather Diabetes Heart disease Maternal Grandfather Lung cancer Sister Cancer of appendix Mother High blood pressure Osteoporosis Social History Narrative: . Spouse has dealt with spine cancer; in remission. She has 2 biological children and 1 stepson. She is a [id number]-hi-[id number] mom. Has completed college. Nonsmoker. Rare to no alcohol use. Denies recreational drug use. Exercise routinely What is your current living situation?: I presently have a place to live Problems where you live: no known problems In the past 12 months, utilities in danger of being shut off: no In past 12 months, lack of transportation kept you from medical appts, meetings, work, or getting things needed for daily living: no In the past 12 mos, have been you worried that your food would run out before you had money to buy more?: never true In the past 12 mos, the food you bought just didn't last and you didn't have money to buy more?: never true Smoking Status: Never smoker Do you use any of these nicotine containing products: None Second hand tobacco smoke exposure: No How often do you have a drink containing alcohol: never How often do you have six or more drinks on one occasion: Never AUDIT-C Alcohol total score: 0 Non-prescribed substance use: denies use Caffeine: Yes How often does anyone, including family, friends and others, physically hurt you : never How often does anyone, including family, friends and others, insult or talk down to you: never How often does anyone, including family, friends and others, threaten you with harm: never How often does anyone, including family, friends and others, scream or curse at you: never service: No Exam Const: Vital Signs, click to edit/add: Vital Signs - 24 hr 09/01/24 01:13 09/01/24 02:13 09/01/24 02:15 Temperature 97.8 F Pulse Rate [Pulse Oximeter] 66 Respiratory Rate 18 14 19 Blood Pressure [Ri ght Upper Arm] 154/88 H Pulse Oximetry 100 Oxygen Delivery Me thod Room Air 09/01/24 02:30 09/01/24 02:45 09/01/24 03:00 Temperature Pulse Rate [Pulse Oximeter] Respiratory Rate 8 L 12 15 Blood Pressure [Ri ght Upper Arm] Pulse Oximetry Oxygen Delivery Me thod 09/01/24 03:15 09/01/24 03:30 09/01/24 03:45 Temperature Pulse Rate [Pulse Oximeter] Respiratory Rate 14 6 L 14 Blood Pressure [Ri ght Upper Arm] Pulse Oximetry Oxygen Delivery Me thod 09/01/24 04:00 Temperature Pulse Rate [Pulse Oximeter] Respiratory Rate 14 Blood Pressure [Ri ght Upper Arm] Pulse Oximetry Oxygen Delivery Ga thod Documenting provider has reviewed patient's vital signs: yes Common normals: no apparent distress and alert General appearance: well kempt HENMT: Common normals: normocephalic, moist oral mucous membranes and oropharynx normal Head and scalp: normocephalic Face and sinus: normal facial exam Eye: Common normals: conjunctivae normal General eye: normal appearance of both eyes Conjunctiva: conjunctiva(e) normal Neck & C-Spine: Common normals: full ROM and no lymphadenopathy General: normal visual inspection Chest: Common normals: inspection of chest normal Resp: Common normals: normal respiratory effort, no use of accessory muscles and clear to auscultation bilaterally Effort & inspection: able to speak in complete sentences Auscultation: clear to auscultation bilaterally Cardio: Common normals: regular rate and regular rhythm Rate: regular rate Rhythm: regular rhythm Other: Slight mid systolic click suspicious for mitral valve prolapse, radiates into left axilla. No gallops. GI: Common normals: Normal to inspection, nondistended, normoactive bowel sounds present, soft to palpation, non-tender, no hepatosplenomegaly and no masses Palpation: soft and no hepatosplenomegaly Extremity: Common normals: normal to inspection, no calf tenderness and no pedal edema Neuro: Common normals: moves all extremities Sensorium/orientation: alert Speech: speech normal Psych: Appearance: well kempt Attitude: engaged Activity/motor behavior: appropriate eye contact Insight: insight good Judgement: judgment good Skin: Common normals: no rashes or lesions noted General skin exam: no rashes or lesions noted Course Course ED Course: 59-year-old female with chest pain that woke her from sleep. She suspects that it is related to the iron supplement and something in the esophagus or GI area. She does have a notable cardiac history that does put her at risk of arrhythmia or structural heart disease. Differential diagnosis also including pulmonary embolism, esophageal spasm, gastritis, GERD, acute coronary syndrome, arrhythmia, pneumonia, musculoskeletal issue, amongst many others. Will place patient on potline monitor, placed peripheral IV. Typical cardiac blood work but also include chest x-ray to look for wide mediastinum or other clues that there may be an aortic issue. Will give aspirin 325 p.o. x1 as well as famotidine and a GI cocktail both for diagnostic and therapeutic potential. Anticipate additional 90 minute troponin for medical decision making. Will awai t findings. Echo reviewed from 02/06/2023. Overall left ventricular function is excellent. EF is 67%. There was a small amount of sclerosis of both the mitral and aortic valves but her aortic valve area was nearly 2 cm. I do not see any wall motion abnormalities or signs of aneurysm on this echo report. Reevaluation(s) Time of Reevaluation #1: 02:38 Reevaluation #1: Patient counseled on initial findings. Chest x-ray, cardiac monitoring initial blood work are all reassuring. Patient has had moderate improvement of pain with the famotidine and GI cocktail, now just a 2/10. She was resting when I went in for re-evaluation. Next troponin will be drawn in about 30 minutes, I am expecting this to be negative. We discussed her symptoms, this is most likely an episode of reflux esophagitis, likely related to taking her iron on an empty stomach right before bed. It sounds like she has had some episodes of reflux in the past. We discussed next steps in management. I would recommend that she take her iron supplement twice a week, preferably in the mornings with food. Bonus points for taking with vitamin-C containing food for ideal absorption. Counseled that iron actually absorbs best when dosed no more often than 3 times per week, spacing out by at least 48 hours. It is okay to use Tylenol or other mild pain relievers. Patient will use omeprazole 20 mg 30 minutes before dinner for the next 2-3 nights to help reduce irritation. Recent prednisone use was likely a factor in the reflux as well. We also reviewed her most recent echo findings, does not need to be repeated at this time. We reviewed alarm symptoms that would warrant ED presentation. It is okay to try some Tums or an antacid at home with similar symptoms, things should improve within about 30 minutes but if not, ED evaluation would be recommended. Any severe symptoms would of course warrant more urgent ED referral. Update: Repeat troponin is less than 0.01, drawn 4 hours post symptom onset. Patient informed of results. Pain is about 2/10, she is resting comfortably. No additional concerns or questions Vital Signs Vital signs: Initial Vital Signs Temperature 97.8 F 09/01/24 01:13 Temperature Source Temporal Artery Scan 09/01/24 01:13 Pulse Rate 66 09/01/24 01:13 Pulse Rhythm Regular 09/01/24 01:13 Respiratory Rate 18 09/01/24 01:13 Blood Pressure 154/88 H 09/01/24 01:13 Blood Pressure Mean 110 H 09/01/24 01:13 Pulse Oximetry 100 09/01/24 01:13 Oxygen Delivery Method Room Air 09/01/24 01:13 Vital Signs Temperature 97.8 F 09/01/24 01:13 Pulse Rate 66 09/01/24 01:13 Respiratory Rate 18 09/01/24 01:13 Blood Pressure 154/88 H 09/01/24 01:13 Pulse Oximetry 100 09/01/24 01:13 Oxygen Delivery Method Room Air 09/01/24 01:13 Temperature 97.8 F 09/01/24 01:13 Pulse Rate 66 09/01/24 01:13 Respiratory Rate 14 09/01/24 04:00 Blood Pressure 154/88 H 09/01/24 01:13 Pulse Oximetry 100 09/01/24 01:13 Oxygen Delivery Method Room Air 09/01/24 01:13 Medications Administered Medications: Discontinued Medications Generic Name Dose Route Start Last Admin Trade Name Freq PRN Reason Stop Dose Admin Aspirin 324 mg 09/01/24 01:41 09/01/24 01:51 Aspirin 81 Mg Tab.Chew PO 09/01/24 01:42 324 mg ONCE ONE Administration Famotidine 20 mg 09/01/24 01:41 09/01/24 01:50 Famotidine 20 Mg Tablet PO 09/01/24 01:42 20 mg ONCE ONE Administration Lidocaine/Aluminum/Magnesium/Simeth 30 ml 09/01/24 01:41 09/01/24 01:53 Gi Cocktail (Visc Lido/Antacid) 30 Ml PO 09/01/24 01:42 30 ml ONCE ONE Administration Medical Decision Making Lab Data Lab results reviewed: Yes I reviewed the patient's lab results Lab results narrative: Labs reassuring. Second troponin negative as well. Labs: Lab Results 09/01/24 09/01/24 Range/Units 01:40 03:39 WBC 5.91 (4.50-11.00) K/uL RBC 4.93 (4.00-5.20) m/uL Hgb 14.2 (12.0-16.0) gm/dL Hct 41.3 (33.0-51.0) % MCV 84 (80-100) fL MCH 29 (26-34) pg MCHC 34 (32-36) gm/dL RDW Coeff of Lizet 12.1 (11.5-15.5) % Plt Count 218 (140-440) K/uL Neut % (Auto) 52.0 (42.0-72.0) % Lymph % (Auto) 39.3 (20-44) % [place] % (Auto) 7.6 (0.0-11.0) % Eos % (Auto) 0.8 (0.0-7.0) % Baso % (Auto) 0.3 (0.0-3.0) % Neut # (Auto) 3.07 (1.7-7.0) K/uL Lymph # (Auto) 2.32 (0.90-2.90) K/uL [place] # (Auto) 0.40 (0.00-0.90) K/UL Eos # (Auto) 0.05 (0.00-0.50) K/uL Baso # (Auto) 0.02 (0.00-0.30) K/uL Abs Immat Gran (auto) 0.00 (0.00-0.30) K/uL Imm/Tot Granulo (auto) 0.0 % D-Dimer Quant (PE/DVT) 0.06 (0.00-0.50) ug/ml Sodium 136 (135-149) mmol/L Potassium 3.6 (3.6-5.1) mmol/L Chloride 102 (96-114) mmol/L Carbon Dioxide 29 (20-32) mmol/L Anion Gap 5 L (7-15) mEq/L BUN 21 (7-30) mg/dL Creatinine 0.7 (0.5-1.5) mg/dL Estimated Creat Clear 81.55 Estimated GFR 100 ml/min Glucose 100 (60-115) mg/dL Calcium 9.7 (8.4-10.6) mg/dL Total Bilirubin 0.3 (0.1-1.5) mg/dL AST 32 (12-35) U/L ALT 23 (4-35) U/L Alkaline Phosphatase 70 (40-150) U/L Troponin I < 0.01 < 0.01 (0.01-0.04) ng/mL C-Reactive Protein < 0.5 L (0.5-1.0) mg/dL NT-Pro-B Natriuret Pep 22 (See Note) pg/mL Total Protein 7.3 (6.0-8.3) g/dL Albumin 4.6 (3.3-5.0) g/dL POC Troponin I 0.01 (0.01-0.04) ng/ml Imaging Data Chest x-ray: Attestation: I have reviewed the pertinent imaging results. My impression: Normal chest x-ray. No cardiomegaly, pleural effusion, infiltrate. Radiologist's impression: Findings/Impression: The heart is not abnormally enlarged. There is mild pulmonary vascular congestion. No confluent airspace opacity appreciated. No pleural effusion or pneumothorax. No acute osseous abnormality. Dictated by Bronson Martinez MD @ 09/01/2024 2:09:33 AM ECG Data Attestation: I personally reviewed and interpreted this ECG as follows: Prior ECG tracings: available for review Interpretation: Sinus rhythm with a rate of 60. Incomplete right bundle branch block is present. Prior EKG from 01/12/2023 reviewed, no changes. On today's image, no significant ST or T-wave abnormalities. Normal intervals and axis. Stable EKG. Discharge Plan Discharge Clinical Impression: Non-cardiac chest pain Patient Disposition: Home w/ Parent or Adult Condition: Improved Instructions: GERD (Gastroesophageal Reflux Disease) (DC) Additional Instructions: I suspect that your episode of chest pain was triggered by gastric reflux. This was likely the consequence of recent use of prednisone causing some mild underlying irritation is susceptible people. I suspect that taking your iron right before going to bed on an empty stomach was the main culprit that caused her symptoms tonight. Iron is actually best absorbed with food, best with something containing vitamin-C like a little bit of orange juice or citrus fruit. Iron is actually best absorbed when taken no more often than every 48 hours. I am glad that your symptoms improved quite a bit with the medicines that we gave you. I would recommend that you use [id number] famotidine or omepr azole 30 minutes before dinner on an empty stomach for the next 2-3 nights to help reduce the chance of another episode of reflux which would delay healing and worsen the irritation. Try to avoid alcohol and carbonated beverages for the next couple of days as well. Your last echo was a year and a half ago and looked great, just some sclerosis of the valves but no signs of aneurysm or while dysfunction. This does not need to be repeated soon. If you have exertional chest pain, severe shortness of breath or severe worsening of symptoms, I would recommend re-evaluation. It is okay to try Maalo x or Tums for similar episodes in the future and if symptoms improve within 10- 15 minutes, would not need ER evaluation. Persistent symptoms would always warrant re-evaluation. Activity Level: No Restrictions Discharge Diet: Regular Prescriptions: No Action omeprazole 20 mg capsule,delayed release(DR/EC) 20 mg PO QDAY acetaminophen [Tylenol] 325 mg capsule 325 mg PO Q6H PRN estradiol [Estrace] 0.01 % (0.1 mg/gram) cream 1 appful vaginal 2XW Qty: 42.5 3RF Rx Instructions: once daily x 2 weeks, then two times per week for maintenance Follow Up/Referrals: Jacklyn Beach PA-C [Primary Care Provider, Family Practice] Stand Alone Forms: [employer] Info Instructions
[2024-09-01] MEDS: FAMOTIDINE 20 MG TABLET PO (01:50)
[2024-09-01] MEDS: ASPIRIN 81 MG TAB.CHEW 324 MG PO (01:51)
[2024-09-01 01:53] LABS: Hematocrit 41.3 % (33.0-51.0); Hemoglobin* 14.2 gm/dL (12.0-16.0); Immature Granulocytes Abs Auto 0.00 K/uL (0.00-0.30); Immature Granulocytes Pct Auto 0.0 %; Lymphocytes Absolute Auto 2.32 K/uL (0.90-2.90); Mean Corpuscular HGB Conc 34 gm/dL (32-36); Mean Corpuscular Hemoglobin 29 pg (26-34); Mean Corpuscular Volume 84 fL (80-100); RDW Coefficient of Variation % 12.1 % (11.5-15.5); Red Blood Count 4.93 m/uL (4.00-5.20); White Blood Count* 5.91 K/uL (4.50-11.00)
[2024-09-01] MEDS: GI COCKTAIL (VISC LIDO/ANTACID) 30 ML PO (01:53)
[2024-09-01 01:57] LABS: Slide Review Reflex No
[2024-09-01 01:58] LABS: Troponin, Point-of-Care* 0.01 ng/ml (0.01-0.04)
[2024-09-01 02:05] LABS: Albumin* 4.6 g/dL (3.3-5.0); Chloride* 102 mmol/L (96-114); Sodium* 136 mmol/L (135-149)
[2024-09-01 02:06] LABS: Potassium* 3.6 mmol/L (3.6-5.1)
[2024-09-01 02:08] LABS: Alanine Aminotransferase* 23 U/L (4-35); Aspartate Amino Transferase* 32 U/L (12-35); Blood Urea Nitrogen* 21 mg/dL (7-30); Creatinine* 0.7 mg/dL (0.5-1.5); Est. Creatinine Clearance* 81.55; Estimated Glomerular Filt Rate 100 ml/min
[2024-09-01 02:09] LABS: Alkaline Phosphatase* 70 U/L (40-150); Anion Gap 5 mEq/L (7-15); Bilirubin Total* 0.3 mg/dL (0.1-1.5); Calcium* 9.7 mg/dL (8.4-10.6); Carbon Dioxide* 29 mmol/L (20-32); Glucose* 100 mg/dL (60-115); Total Protein* 7.3 g/dL (6.0-8.3)
[2024-09-01 02:13] LABS: D Dimer Quantitative* 0.06 ug/ml (0.00-0.50)
[2024-09-01 02:27] LABS: NT Pro B Type NatriureticPept* 22 pg/mL (See Note)
== END 2024-09-01 04:30 | disposition home or self-care (01) ==
PROVIDERS: Emergency Provider Family Medicine; PCP Physician Assistant Medical
DX: R07.89 Other chest pain (principal)
CPT/HCPCS: 36415; 71046; 80053; 83880; 84484; 85025; 85379; 86140; 93005; 94761; 99284; 99285; A9270

== ENCOUNTER 2024-10-07 07:38 | Outpatient (CLI) | payer OTHER, SELFPAY ==
--- NOTE | 2024-10-07 08:00 | CRLHL7_ITS ---
For Patients: As a result of the Century Cures Act, medical imaging exams and procedure reports are released immediately into your electronic medical record. You may view this report before your referring provider. If you have questions, please contact your health care provider. Indication: Pancreatic cyst, abdominal pain Technique: CT Abdomen/Pelvis W/ 95CC [id number] intravenous contrast 3 PHASE PANCREAS. Postcontrast images in the arterial, 40 second delay and 70 second delay. Please note that all CT scans at this facility use dose modulation, iterative reconstruction, and/or weight-based dosing when appropriate to reduce radiation dose to as low as reasonably achievable. Comparison: CT 01/15/2023 Findings: Lung bases clear. Normal liver. Gallbladder absent. Normal spleen. Adrenal glands normal. Normal kidneys. Water attenuation nonenhancing cyst within the pancreas measures 9 millimeters, unchanged. No adenopathy. Normal vascular patency without encasement or thrombus. Bladder normal. Uterine calcification. No pelvic mass. No excess pelvic free fluid. No free air, free fluid or abscess. No bowel obstruction. No fracture. Impression: Stable 9 millimeter pancreatic cyst. No acute findings. Please note that all CT scans at this facility use dose modulation, iterative reconstruction, and/or weight-based dosing when appropriate to reduce radiation dose to as low as reasonably achievable. Dictated by Steve Hoffman MD @ 10/07/2024 1:12:15 PM (Electronically Signed)
== END 2024-10-07 07:39 | disposition home or self-care (01) ==
LOC: CT 07:39
PROVIDERS: PCP Physician Assistant Medical; Visit Provider Physician Assistant Medical
DX: K86.2 Cyst of pancreas (principal)
CPT/HCPCS: 74178; Q9967

== ENCOUNTER 2024-12-12 10:10 | Outpatient (CLI) | payer OTHER, SELFPAY ==
--- NOTE | 2024-12-27 11:46 | W.PM.SLEEP ---
Sleep Study Details Details Interpreting Provider: Linnea Date of Sleep Study: 12/12/24 Sleep Study Details: STUDY TYPE:? Home unattended ? BMI:? 21.63 ORDERING PROVIDER:? Linnea INDICATION:? Concern for sleep apnea ? SLEEP SUMMARY:? 455 minutes monitored RESPIRATORY SUMMARY:? AHI 8.3 rule 1A, 2.5 per CMS guideline Low oxygen 89 Snoring 98.4% PERIODIC LIMB MOVEMENTS OF SLEEP:? Not recorded CARDIAC:? Range 46-92, mean 56.1 beats per minute IMPRESSION:? Mild obstructive sleep apnea RECOMMENDATION: Treatment options include CPAP, dental appliance and/or airway expansion surgery.
== END 2024-12-12 10:11 | disposition home or self-care (01) ==
PROVIDERS: PCP Physician Assistant Medical; Visit Provider Otolaryngology
DX: G47.33 Obstructive sleep apnea (adult) (pediatric) (principal)
CPT/HCPCS: 95806